=== PATIENT | female | born 1960 | race Caucasian/White ===

== ENCOUNTER 2018-11-28 11:37 | Inpatient (IN) ==
[2018-11-28] MEDS ORDERED: PANTOPRAZOLE 40 MG VIAL IV ONE (12:47)
--- NOTE | 2018-11-28 12:47 | Emergency Department Note ---
Skin/Abscess/FB HPI - General Chief complaint: Skin/Abscess/Foreign Body Stated complaint: Peg tube fell out Time Seen by Provider: 11/28/18 11:44 Source: patient Mode of arrival: wheelchair Limitations: no limitations - History of Present Illness HPI Narrative: 58-year-old female comes in from [facility] nursing [facility] in [facility] for her PEG tube that fell out. Apparently they talked to a surgeon who advised them to put a Perez catheter in its place until definitive care could be achieved. She was actually seen last night for similar complaint here by Noemí PERDAZA but at that time the PEG tube was in place and working normally. I reviewed that note And discussed the situation with the nurse practitioner who saw her yesterday-she states that the tube was in good position yesterday. Anyways at this point she is leaking bloody gastric juices all over her left abdomen. She is screaming in pain at times. She has limited verbal capacity status post CVA, with multiple complications-she has a right sided arm contracture, hemiplegia dysarthria dysphagia etc. She will answer yes or no questions however She is DNR with limited interventions-see post form - Related Data Home Medications Medication Instructions Recorded Confirmed ALPRAZolam [Xanax] 0.5 mg PO BIDP PRN 09/13/18 09/13/18 Acetaminophen [Tylenol] 500 mg PO QHS 09/13/18 09/13/18 Albuterol Sulfate [Ventolin] 2.5 mg NEB Q2HP PRN 09/13/18 09/13/18 Bisacodyl [Correctol] 5 mg PO DAILY 09/13/18 09/13/18 Bisacodyl [Laxative Suppository] 10 mg RC PRN PRN 09/13/18 09/13/18 Cholecalciferol (Vitamin D3) 2,000 unit PO DAILY 09/13/18 09/13/18 [Vitamin D3] Citalopram Hydrobromide 30 mg PO DAILY 09/13/18 09/13/18 [Citalopram HBr] Cranberry 500 mg PO BID 09/13/18 09/13/18 Docusate Sodium [Colace] 100 mg PO BID 09/13/18 09/13/18 Folic Acid 1 mg PO DAILY 09/13/18 09/13/18 Gabapentin [Neurontin] 18 ml PO TID 09/13/18 09/13/18 HYDROcodone/APAP 5/325MG [[place] 1 tab PO TIDP PRN 09/13/18 09/13/18 5-325Mg] Ipratropium/Albuterol [Duoneb] 3 ml NEB Q6HP PRN 09/13/18 09/13/18 Loratadine [Loradamed] 10 mg PO DAILY 09/13/18 09/13/18 Magnesium Hydroxide [Milk of 400 mg PO PRN PRN 09/13/18 09/13/18 Magnesia] Melatonin 10 mg PO QHS 09/13/18 09/13/18 Mirtazapine [Remeron] 1.5 tab PO HS 09/13/18 09/13/18 Mometasone Efrem [place] [Nasonex] 2 spray EFREM DAILY 09/13/18 09/13/18 Multivitamin [One Daily] 1 each PO DAILY 09/13/18 09/13/18 PHENobarbital [Phenobarbital] 64.8 mg PO BID 09/13/18 09/13/18 Polyethylene Glycol 3350 [Miralax] 17 gm PO QHS 09/13/18 09/13/18 Sodium Fluoride [Clinpro 5000] 113 gm DT BID 09/13/18 09/13/18 carBAMazepine [Tegretol] 200 mg PO QNOON 09/13/18 09/13/18 carBAMazepine [Tegretol] 300 mg PO QPM 09/13/18 09/13/18 carBAMazepine [Tegretol] 400 mg PO QAM 09/13/18 09/13/18 guaiFENesin [Guaifenesin] 400 mg PO Q12HP PRN 09/13/18 09/13/18 Previous Rx's Medication Instructions Recorded ALPRAZolam [Xanax] 0.5 mg PO BIDP PRN #6 tab 09/17/18 HYDROcodone/APAP 5/325MG [[place] 1 tab PO TIDP PRN #10 tab 09/17/18 5-325Mg] Doxycycline Hyclate [Morgidox] 100 mg PO BID 10 Days #20 cap 11/27/18 Allergies Allergy/AdvReac Type Severity Reaction Status Date / Time Amoxicillin [From Augmentin] Allergy Verified 11/28/18 11:37 bee venom protein (honey bee) Allergy Verified 11/28/18 11:37 clavulanic acid Allergy Verified 11/28/18 11:37 [From Augmentin] divalproex sodium Allergy Verified 11/28/18 11:37 [From Depakote] latex Allergy Verified 11/28/18 11:37 Penicillins Allergy Verified 11/28/18 11:37 phenytoin [From Dilantin] Allergy Verified 11/28/18 11:37 valproic acid Allergy Verified 11/28/18 11:37 seafood Allergy Uncoded 09/13/18 22:18 Review of Systems Limitations: ROS unobtainable due to patients medical condition Past Medical History - Past Medical History Source: old records reviewed Medical history: Reports: CVA (Complications of muscle weakness and contracture on the right, aphasia, ataxia, dysphagia), hypertension, osteoporosis, seizures Surgical history ED: Reports: other (Craniotomy with temporal lobe lobectomy, retroperitoneal shunt, colonoscopy, left hip arthroscopy, PEG tube) - Social History smoking status: Former smoker Alcohol use: Reports: None Drug use: Reports: none Physical Exam Some distress secondary to pain. Normocephalic atraumatic. Conjunctive are clear sclerae white and nonicteric. Moist mucous membranes. Poor dentition. She is crying out in pain but she has a gurgling in her throat like she is hav ing trouble controlling her secretions. We did suction with the [place] and just had mucousy spittle. No debris or foodstuffs. Heart is regular rate and rhythm no murmur appreciated. However she is somewhat difficult to auscultate with her moaning in pain and the gurgling in the top of her throat. Lungs are basically clear especially laterally. Examination of the stomach wound and peristomal area skin where the PEG tube had been is very irritated from the leaking sanguinous gastric juices. It is not clear where the Perez tube had gone-but clearly not in place now. So there is a surrounding halo of erythematous skin. She has a contracture of the right hand and arm. Not moving much spontaneously but is rolled up onto the left side Course Vital Signs Temperature 98.9 F 11/28/18 11:37 Pulse Rate 83 11/28/18 11:37 Respiratory Rate 20 11/28/18 11:37 Blood Pressure 145/109 11/28/18 11:37 Pulse Oximetry (%) 96 11/28/18 11:37 Temperature 98.9 F 11/28/18 11:37 Pulse Rate 74 11/28/18 12:47 Respiratory Rate 20 11/28/18 11:37 Blood Pressure 132/115 11/28/18 12:47 Pulse Oximetry (%) 93 11/28/18 12:47 Skin/Abscess/Foreign Body - Radiology Data Radiology results reviewed: Yes I reviewed the patient's radiology results. Chest x-ray shows increased vascular markings but no acute disease process Disposition Pt seen by [facility] T[facility]ER/PA only: No Clinical Impression: Dysphagia as late effect of cerebrovascular accident (CVA), PEG tube malfunction Dermatitis due to food skin contact Qualifiers: Contact dermatitis type: irritant Qualified Code(s): L24.6 - Irritant contact dermatitis due to food in contact with skin Summary: I reviewed the chart examined the patient and then ordered laboratory and x-ray. I discussed case with Dr. Ankit Lala, general surgeon who agreed to come down and examine patient as well. Rx is written for small amount of Protonix IV with the thought that this might reduce acid secretion and therefore skin irritation while waiting Dr. Lala agreed that the patient needed replaced PEG tube as well as further workup regarding her respiratory status chest x-ray was unrevealing and so CT scan was ordered. This had to be changed without contrast. There are vascular access issues but we were able to get laboratory. Dr. Lala agreed to accept the patient and so she is admitted to observation status Laboratory and CT scan are pending. IV access is still an issue Disposition: Xfer As Inpt ([facility]) Condition: Fair Referrals: Olga Artis MD [Primary Care Provider] - Ankit Lala MD [Physician] -
[2018-11-28] MEDS ORDERED: ONDANSETRON 4 MG/2 ML VIAL IV PRN ×2 (12:50→13:00)
[2018-11-28] MEDS ORDERED: PIPERACILLIN SODIUM/TAZOBACTAM 3.375 GM in DEXTROSE 5% IN WATER 50 ML IV SCH ×2 (13:00)
--- NOTE | 2018-11-28 13:02 | XRay Report ---
INDICATION: Dyspnea. Gastrostomy tube has been removed TECHNIQUE: AP chest x-ray,audible semiupright COMPARISON: Previous examination dated 11/27/2018 FINDINGS:Lungs are negative. No parenchymal infiltrate or mass. No focal abnormality. Heart size and vascularity are normal. Natyt and mediastinum are negative. Again demonstrated is a left-sided ventriculoperitoneal shunt catheter. No significant interval change IMPRESSION: 1. Negative AP chest x-ray 2. No significant interval change since 11/27/2018 Interpreted and Authenticated by: Juan Mendoza 11/28/18
[2018-11-28 13:51] LABS: Basophils # (Auto) 0 K/mcL (0.0-0.3); Basophils % (Auto) 0.3 % (0.0-2.0); Eosinophils # (Auto) 0 K/mcL (0.0-0.7); Eosinophils % (Auto) 0 % (0.0-7.0); Granulocytes % (Auto) 45.7 % (38.0-78.0); Lymphocytes # (Auto) 2.6 K/mcL (1.5-4.8); Lymphocytes % (Auto) 41.9 % (15.5-49.0); Mean Cell Volume 94.4 fL (80.0-100.0); Mean Corpuscular HGB Conc 33.2 g/dL (31.0-36.0); Monocytes # (Auto) 0.7 K/mcL (0.1-0.9); Monocytes % (Auto) 12.1 % (1.0-12.0); Platelet Count 248 K/mcL (140-440); RBC 4.31 M/mcL (4.00-5.20); Red Cell Distribution Width 13.6 % (11.5-14.5)
[2018-11-28 14:10] LABS: ALT/SGPT 11 U/l (0-40); Albumin 3.7 gm/dL (3.2-5.2); Albumin/Globulin Ratio 0.9 (1.0-2.3); Alkaline Phosphatase 157 U/L (39-117); Blood Urea Nitrogen 11 mg/dl (6-20)
--- NOTE | 2018-11-28 14:21 | Cat Scan Report ---
CLINICAL INFORMATION: History of percutaneous gastrostomy tube. This has apparently been removed and is leaking. COMPARISON: Previous examination dated 09/13/2018 TECHNIQUE: Axial images were obtained through the abdomen and pelvis. Sagittally and coronally reformatted images. FINDINGS: There is a history of a gastrostomy tube. Catheter is not identified. Greater curvature of the stomach is closely applied to the abdominal wall. There is a skin defect in the left anterior abdominal wall. Appearance is consistent with chronic granulation tissue forming around the gastrostomy tract. There is no detectable lumen. There is no pneumoperitoneum. No significant free intraperitoneal fluid. No intra-abdominal abscess. There is no subcutaneous abscess. There is mild left lower lobe atelectasis or infiltrate. No pleural fluid. No pericardial fluid. Liver is negative for limits of noncontrast enhanced examination. Liver contour is smooth. There is no ascites. Gallbladder is present. No calcified gallstones. Spleen is not enlarged. Negative pancreas. No pancreatic mass. No peripancreatic abnormality. Negative adrenal glands. Kidneys are negative. No detectable mass. No calculi. No hydronephrosis or hydroureter. Uterus appears to be present. There is no adnexal mass. The distal sigmoid colon and rectum are dilated and filled with fecal material. Appearance is consistent with fecal impaction. There is mild pneumatosis consistent with stercoral colitis. No intra-abdominal abscess. No perirectal abscess. There is no pneumoperitoneum. No biliary or portal venous gas. Superior mesenteric vein is negative without gas. No lumbar compression fracture. There is left convex scoliosis. There is a prosthetic right hip. No pelvic fracture. No sacral fracture. IMPRESSION: 1. Soft tissue density extending from the stomach to the skin surface on the left side of the abdomen. There is no intraperitoneal gas or fluid. No intra-abdominal abscess 2. Distal fecal impaction and findings consistent with stercoral colitis The exam was performed using radiation dose optimization techniques including, but not limited to, automated exposure control, adjustment of the mA and/or kV according to patient size and use of iterative reconstruction technique. Interpreted and Authenticated by: Juan Mendoza 11/28/18
[2018-11-28] MEDS: IPRATROPIUM/ALBUTEROL 3 ML AMPUL.NEB NEB SCH ×3 (15:23→23:16)
[2018-11-28] MEDS: 0.9 % SODIUM CHLORIDE 1,000 ML IV SCH (15:57)
[2018-11-28] MEDS: 0.9 % SODIUM CHLORIDE 10 ML SYRINGE IV SCH ×2 (15:57→22:55)
[2018-11-28] MEDS: HYDROmorphone 2 MG/ML VIAL IV PRN ×2 (16:00→22:53)
[2018-11-28] MEDS: PANTOPRAZOLE 40 MG VIAL IV SCH (17:03)
--- NOTE | 2018-11-28 17:35 | Internal Medicine Consult Note ---
Medical - CN: [facility] - Data of Consult Consult date: 11/28/18 Primary Care Provider: Olga Artis Family Provider: Grayson Cullen - Consult Narrative Reason for consult: management of medical issues-requesting physician Dr. Lala surgery History of present illness: Ms. Pino is a 58 year old F with a history of CVA, craniotomy, OVERSEAMER shunt ,dysphagia on PEG tube feeding ,seizure disorder, depression with anxiety who currently resides at the [facility]. Patient carries a history of significant dysphagia secondary to CVA and has a gastrostomy tube for nutrition and medications. She comes to [place] [facility] after she was directed for further evaluation in the setting of recent gastrostomy dislodgment which was replaced by a Perez's catheter. Subsequently it was noted that she had extensive discharge around the ostomy site surrounding the catheter. She subsequent developed extensive excoriation of the skin along the left flank and abdomen due to leaking gastric fluids. Concern was raised about the possibility of malpositioning of Perez's catheter in the gastrostomy orifice. Initial workup included CT abdomen which did not show any acute peritonitis or intra-abdominal fluid collection. Surgery was consulted and admitted the patient for gastrostomy tube placement in a.m. Patient is currently n.p.o. Hospitalist service was consulted in light of complex medical history including CVA/seizure disorder on multiple medications. At the time of evaluation patient is nondistressed. She has an ostomy bag over gastrostomy site. Wound care team currently addressing cheryl-gastrostomy site skin inflammation. Patient denies fever chills but endorses to pain around the ostomy site. Patient has significant expressive aphasia. She does not appear to be in distress and breathing comfortably. 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, apparently she does not drink. She is unable to say whether or not she smokes, records are mixed as to whether or not she is an active smoker. Medical - CN: Meds Home Medications Medication Instructions Recorded Confirmed Type ALPRAZolam [Xanax] 0.5 mg PO BIDP PRN 09/13/18 11/28/18 History Acetaminophen [Tylenol] 500 mg PO QHS 09/13/18 11/28/18 History Albuterol Sulfate [Ventolin] 2.5 mg NEB Q2HP PRN 09/13/18 11/28/18 History Bisacodyl [Correctol] 5 mg PO DAILYP PRN 09/13/18 11/28/18 History Bisacodyl [Laxative Suppository] 10 mg RC PRN PRN 09/13/18 11/28/18 History Cholecalciferol (Vitamin D3) 2,000 unit PO DAILY 09/13/18 11/28/18 History [Vitamin D3] Citalopram Hydrobromide 30 mg PO DAILY 09/13/18 11/28/18 History [Citalopram HBr] Cranberry 425 mg PO BID 09/13/18 11/28/18 History Docusate Sodium [Colace] 100 mg PO BID 09/13/18 11/28/18 History Folic Acid 1 mg PO DAILY 09/13/18 11/28/18 History HYDROcodone/APAP 5/325MG [[place] 1 tab PO Q8H PRN 09/13/18 11/28/18 History 5-325Mg] Ipratropium/Albuterol [Duoneb] 3 ml NEB Q6HP PRN 09/13/18 11/28/18 History Loratadine [Loradamed] 10 mg PO DAILY 09/13/18 11/28/18 History Magnesium Hydroxide [Milk of 400 mg PO PRN PRN 09/13/18 11/28/18 History Magnesia] Melatonin 10 mg PO QHS 09/13/18 11/28/18 History Mirtazapine [Remeron] 1.5 tab PO HS 09/13/18 11/28/18 History Mometasone Efrem [place] [Nasonex] 2 spray EFREM DAILY 09/13/18 11/28/18 History Multivitamin [One Daily] 1 each PO DAILY 09/13/18 11/28/18 History PHENobarbital [Phenobarbital] 64.8 mg PO BID 09/13/18 11/28/18 History Polyethylene Glycol 3350 [Miralax] 17 gm PO QHS 09/13/18 11/28/18 History carBAMazepine [Tegretol] 200 mg PO DAILY 09/13/18 11/28/18 History carBAMazepine [Tegretol] 300 mg PO QPM 09/13/18 11/28/18 History carBAMazepine [Tegretol] 400 mg PO QAM 09/13/18 11/28/18 History guaiFENesin [Guaifenesin] 400 mg PO Q12HP PRN 09/13/18 11/28/18 History Doxycycline Hyclate [Morgidox] 100 mg PO BID 10 Days #20 cap 11/27/18 11/28/18 Rx Gabapentin [Neurontin] 900 mg PO TID 11/28/18 11/28/18 History Loratadine 10 mg FLUSH DAILY 11/28/18 11/28/18 History Allergies Allergy/AdvReac Type Severity Reaction Status Date / Time bee venom protein (honey bee) Allergy Verified 11/28/18 11:37 divalproex sodium Allergy Verified 11/28/18 11:37 [From Depakote] latex Allergy Verified 11/28/18 11:37 Penicillins Allergy Verified 11/28/18 11:37 phenytoin [From Dilantin] Allergy Verified 11/28/18 11:37 seafood Allergy Uncoded 09/13/18 22:18 Medical - CN: Exam - Constitutional Vitals: Temp Pulse Resp BP Pulse Ox 98.7 F 95 H 16 136/82 93 11/28/18 16:00 11/28/18 16:00 11/28/18 16:00 11/28/18 16:00 11/28/18 16:00 General appearance: no acute distress Exam: Patient alert however slow to respond with expressive aphasia, nondistressed Postcraniotomy/OVERSEAMER shunt Oral cavity dry No ear nose discharge Neck no lymphadenopathy S1-S2 regular rhythm Diminished breath sounds bases Abdomen soft, minimally tender around the G-tube insertion site and extensive excoriation/erythema on the left lateral flank due to gastric acid flow over from gastrostomy orifice. Ostomy bag in place right sided weakness at baseline No skin rash/cyanosis, minimal edema Psych cooperative but slow to respond Medical - CN: Result - Labs CBC & Chem 7: 11/28/18 13:28 11/28/18 13:28 Labs: Short CBC 11/28/18 Range/Units 13:28 WBC 6.1 (4.5-11.0) K/mcL Hgb 13.5 (12.0-15.0) g/dL Hct 40.7 (36.0-48.0) % Plt Count 248 (140-440) K/mcL BMP 11/28/18 13:28 Sodium 140 Potassium 4.1 Chloride 101 Carbon Dioxide 30 BUN 11 Creatinine 0.4 L Glucose 99 Calcium 9.5 Liver Function 11/28/18 Range/Units 13:28 Total Bilirubin 0.3 (0.0-1.0) mg/dL AST 13 (0-37) U/l ALT 11 (0-40) U/l Alkaline Phosphatase 157 H (39-117) U/L Albumin 3.7 (3.2-5.2) gm/dL Medical - CN: A/P (1) PEG tube malfunction Status: Acute Assessment and plan: * Gastrostomy site wound/G-tube displacement with subsequent leakage. Surgery managing. Will undergo placement of G-tube in morning. CT abdomen no e vidence of peritonitis/abscess. Currently n.p.o. until G-tube placement in a.m. initiated on antibiotic coverage/IV PPI for gastric acid suppression Hospitalist consult for management of medical issues * History of CVA with right hemiparesis status post OVERSEAMER shunt/temporal lobectomy and craniotomy-patient at baseline with expressive aphasia. * History of anxiety depression-continue home medications once G-tube placed. At this time n.p.o. we will restart citalopram/alprazolam/mirtazapine * History of seizure disorder-on carbamazepine/gabapentin/phenobarbital at outpatient however in light of being n.p.o. will use as needed benzodiazepine. * History of asthma continue bronchodilators * DNR * Prophylaxis SCDs Plan * G-tube placement a.m. by surgery * IV PPI to allow gastric acid suppression and minimize leakage * Wound care consult * IV antiseizure medications as indicated. * Restart home meds Post G-tube placement
--- NOTE | 2018-11-28 17:54 | General Surg History&Physical ---
History of Present Illness Patient information: Note initiated : 11/28/18 at 5:51 pm Service Date, if different from initiated Date: [] Patient: Jose Alejandro Pino a 58 y/o F admitted on 11/28/18 for Peg tube fell out. Chief Complaint: [] HPI: Ms. Pino is a 58 year old F admitted with malposition gastrostomy tube. The patient has had a gastrostomy tube since 2015 according to her records. I saw her in the emergency room O1 September and change to a gastrostomy tube. In the interim the site of the gastrostomy tube has become severely excoriated with secondary cellulitis and the tube has been malposition. CT done earlier that's not confirm any leakage into the peritoneal cavity. The patient is admitted for treatment of her abdominal wall cellulitis as well as placement of a new gastrostomy tube endoscopically to allow the present site to heal. The patient does not respond to questioning so I have contacted her sister to get consent for placement of the TUBE. 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 ENTRY shunt placement Left hip hemiarthroplasty Right hip hemiarthroplasty Gastrostomy tube placement Past family history: Unobtainable Past social history: Patient resides in a nursing care facility No other history is available Medications and Allergies Home Medications Medication Instructions Recorded Confirmed Type ALPRAZolam [Xanax] 0.5 mg PO BIDP PRN 09/13/18 11/28/18 History Acetaminophen [Tylenol] 500 mg PO QHS 09/13/18 11/28/18 History Albuterol Sulfate [Ventolin] 2.5 mg NEB Q2HP PRN 09/13/18 11/28/18 History Bisacodyl [Correctol] 5 mg PO DAILYP PRN 09/13/18 11/28/18 History Bisacodyl [Laxative Suppository] 10 mg RC PRN PRN 09/13/18 11/28/18 History Cholecalciferol (Vitamin D3) 2,000 unit PO DAILY 09/13/18 11/28/18 History [Vitamin D3] Citalopram Hydrobromide 30 mg PO DAILY 09/13/18 11/28/18 History [Citalopram HBr] Cranberry 425 mg PO BID 09/13/18 11/28/18 History Docusate Sodium [Colace] 100 mg PO BID 09/13/18 11/28/18 History Folic Acid 1 mg PO DAILY 09/13/18 11/28/18 History HYDROcodone/APAP 5/325MG [[place] 1 tab PO Q8H PRN 09/13/18 11/28/18 History 5-325Mg] Ipratropium/Albuterol [Duoneb] 3 ml NEB Q6HP PRN 09/13/18 11/28/18 History Loratadine [Loradamed] 10 mg PO DAILY 09/13/18 11/28/18 History Magnesium Hydroxide [Milk of 400 mg PO PRN PRN 09/13/18 11/28/18 History Magnesia] Melatonin 10 mg PO QHS 09/13/18 11/28/18 History Mirtazapine [Remeron] 1.5 tab PO HS 09/13/18 11/28/18 History Mometasone Efrem [place] [Nasonex] 2 spray EFREM DAILY 09/13/18 11/28/18 History Multivitamin [One Daily] 1 each PO DAILY 09/13/18 11/28/18 History PHENobarbital [Phenobarbital] 64.8 mg PO BID 09/13/18 11/28/18 History Polyethylene Glycol 3350 [Miralax] 17 gm PO QHS 09/13/18 11/28/18 History carBAMazepine [Tegretol] 200 mg PO DAILY 09/13/18 11/28/18 History carBAMazepine [Tegretol] 300 mg PO QPM 09/13/18 11/28/18 History carBAMazepine [Tegretol] 400 mg PO QAM 09/13/18 11/28/18 History guaiFENesin [Guaifenesin] 400 mg PO Q12HP PRN 09/13/18 11/28/18 History Doxycycline Hyclate [Morgidox] 100 mg PO BID 10 Days #20 cap 11/27/18 11/28/18 Rx Gabapentin [Neurontin] 900 mg PO TID 11/28/18 11/28/18 History Loratadine 10 mg FLUSH DAILY 11/28/18 11/28/18 History Allergies Allergy/AdvReac Type Severity Reaction Status Date / Time bee venom protein (honey bee) Allergy Verified 11/28/18 11:37 divalproex sodium Allergy Verified 11/28/18 11:37 [From Depakote] latex Allergy Verified 11/28/18 11:37 Penicillins Allergy Verified 11/28/18 11:37 phenytoin [From Dilantin] Allergy Verified 11/28/18 11:37 seafood Allergy Uncoded 09/13/18 22:18 Exam Temp Pulse Resp BP Pulse Ox 98.7 F 95 H 16 136/82 93 11/28/18 16:00 11/28/18 16:00 11/28/18 16:00 11/28/18 16:00 11/28/18 16:00 - General physical appearance moderate pain, cachectic, chronically ill - ENT normal pinna, normal nares, normal mucosa, no congestion - Head Head exam IM: Present: normal inspection - Neck no masses, no bruits, trachea midline, no lymphadenopathy, no venous distension - Cardiovascular Cardiovascular exam IM: Present: RRR, +S1, +S2, tachycardia. Absent: JVD - Respiratory normal expansion, normal respiratory effort, other (coarse tubular breath sounds both lung nevarez) - Abdomen Abdomen: Present: tender ( patient Andrés is for contracted; old inflamed PEG tube site left upper quadrant with extensive cellulitis of anterior abdominal wall with excoriations), bowel sounds - Integumentary Present: other (severe cellulitis around PEG site in left upper quadrant and is presently covered with a stoma device) - Neurologic Present: other ( severe neurologic deficit with flexion contractures of hips knees, ankles, feet and entire right upper extremity) - Psychiatric Present: other (difficult to determine if she is fully oriented; she does not respond to any yes or no questions and symmetric,) Assessment and Plan (1) PEG tube malfunction PEG tube will be placed tomorrow under anesthesia Boaz site will be allowed to heal Antibiotic coverage for cellulitis Status: Acute (2) Cellulitis of left abdominal wall Wound care nurse to evaluate and treat patient Status: Acute (3) History of stroke with residual deficit Status: Acute (4) Contracture of muscle of lower extremity, bilateral Status: Acute (5) Seizure disorder as sequela of cerebrovascular accident Status: Acute
[2018-11-28] MEDS: LEVOFLOXACIN 750 MG/150 ML BAG IV SCH (18:05)
[2018-11-29] MEDS: 0.9 % SODIUM CHLORIDE 1,000 ML IV SCH ×4 (02:47→23:29)
[2018-11-29] MEDS: IPRATROPIUM/ALBUTEROL 3 ML AMPUL.NEB NEB SCH ×6 (03:23→23:32)
[2018-11-29] MEDS: 0.9 % SODIUM CHLORIDE 10 ML SYRINGE IV SCH ×3 (04:06→23:21)
[2018-11-29] MEDS: HYDROmorphone 2 MG/ML VIAL IV PRN ×5 (05:06→23:18)
[2018-11-29 06:51] LABS: Mean Cell Volume 95.7 fL (80.0-100.0); Mean Corpuscular HGB Conc 33.1 g/dL (31.0-36.0); Platelet Count 214 K/mcL (140-440); RBC 3.73 M/mcL (4.00-5.20); Red Cell Distribution Width 13.4 % (11.5-14.5)
[2018-11-29 07:15] LABS: ALT/SGPT 8 U/l (0-40); Albumin 3.3 gm/dL (3.2-5.2); Albumin/Globulin Ratio 0.9 (1.0-2.3); Alkaline Phosphatase 130 U/L (39-117); Bilirubin,Direct < 0.2 mg/dL (0.0-0.3); Blood Urea Nitrogen 17 mg/dl (6-20); Gamma Glutamyl Transpeptidase 46 U/L (5-36); Uric Acid 3.9 mg/dL (2.5-8.0)
[2018-11-29 08:20] LABS: Eosinophils % (Manual) 1 % (0-7); Lymphocytes % 41 % (15-49); Monocytes % (Manual) 8 % (1-12); Platelet Estimate NORMAL (NORMAL); RBC Morphology NORMAL (NORMAL); Segmented Neutrophils % 50 % (38-78)
[2018-11-29] MEDS: PANTOPRAZOLE 40 MG VIAL IV SCH ×2 (09:32→16:09)
[2018-11-29] MEDS: LEVOFLOXACIN 750 MG/150 ML BAG IV SCH (09:33)
[2018-11-29] MEDS ORDERED: levETIRAcetam 500 MG in 0.9 % SODIUM CHLORIDE 100 ML IV ONE (10:30)
--- NOTE | 2018-11-29 12:03 | Internal Med Progress Note ---
Medical - PN: Subj Patient information: Note initiated : 11/29/18 at 12:00 pm Service Date, if different from initiated Date: [] Patient: Jose Alejandro Pino a 58 y/o F admitted on 11/28/18 for Peg tube fell out. Chief Complaint: [] Interval history: Ms. Pino is a 58 year old F with a history of CVA, craniotomy, CLIENT RESOLUTION SPECIALIST shunt ,dysphagia on PEG tube feeding ,seizure disorder, depression with anxiety who currently resides at [facility]. Patient carries a history of significant dysphagia secondary to CVA and has a gastrostomy tube for nutrition and medications. She comes to [place] [facility] after she was directed for further evaluation in the setting of recent gastrostomy dislodgment which was replaced by a Perez's catheter. Subsequently it was noted that she had extensive discharge around the ostomy site surrounding the catheter. She subsequent developed extensive excoriation of the skin along the left flank and abdomen due to leaking gastric fluids. Concern was raised about the possibility of malpositioning of Perez's catheter in the gastrostomy orifice. Initial workup included CT abdomen which did not show any acute peritonitis or intra-abdominal fluid collection. Surgery was consulted and admitted the patient for gastrostomy tube placement in a.m. Patient is currently n.p.o. Hospitalist service was consulted in light of complex medical history including CVA/seizure disorder on multiple medications. At the time of evaluation patient is nondistressed. She has an ostomy bag over gastrostomy site. Wound care team currently addressing cheryl-gastrostomy site s kin inflammation. Patient denies fever chills but endorses to pain around the ostomy site. Patient has significant expressive aphasia. She does not appear to be in distress and breathing comfortably. 11/29-patient doing well. No overnight events. Due for PEG tube placement today. IV Keppra for seizure prophylaxis load as patient unable to take per tube antiseizure medications. Continue IV Keppra until able to use PEG tube. No overnight fever or chills. No concerns per staff. Ongoing wound care around the gastrostomy site - Constitutional Vitals: Vital Signs Temp Pulse Resp BP Pulse Ox 97.9 F 101 H 16 130/67 95 11/29/18 11:14 11/29/18 06:42 11/29/18 11:14 11/29/18 11:14 11/29/18 11:14 Period Temp Pulse Resp BP Sys/Honeycutt Pulse Ox Last 24 Hr 97.9 F-99.3 F 74-110 12-20 103-152/63-115 80-97 Intake and Output 11/28/18 11/29/18 11/29/18 21:59 05:59 13:59 Intake Total 1000 300 Output Total 1 1 Balance -1 999 300 Weight 135 lb 152 lb 152 lb Patient Weight 11/30/18 05:59 Weight 152 lb Intake & Output: Intake & Output 11/28/18 11/29/18 11/29/18 21:59 05:59 13:59 Intake Total 1000 300 Output Total 1 1 Balance -1 999 300 Weight 135 lb 152 lb 152 lb Intake: IV 1000 300 Sodium Chloride 0.9% 1,000 ml @ 1000 75 mls/hr IV .[id number] [facility] Rx#: [id number] Oral 0 Output: # of times incontinent of urine 1 1 Other: Stool Size Small Stool Color Brown Stool Consistency Soft # Bowel Movements 1 # of times incontinent of 1 Bowels General appearance: no acute distress Exam: Mild cheryl-gastrostomy site inflammation with ostomy bag in place. No anxiety Persistent right-sided weakness/upper extremity spasm from prior CVA Alert and responding to commands Medical - PN: Obj Da - Labs CBC & Chem 7: 11/29/18 05:41 11/29/18 05:41 Labs: Abnormal Lab Results 11/29/18 11/29/18 11/28/18 05:41 05:41 13:28 RBC 3.73 L Hgb 11.8 L Hct 35.7 L [place] % (Auto) Creatinine 0.4 L Glucose 113 H GGT 46 H Alkaline Phosphatase 130 H C-Reactive Protein 5.0 H Globulin Albumin/Globulin Ratio 0.9 L 11/28/18 11/28/18 13:28 13:28 RBC Hgb Hct [place] % (Auto) 12.1 H Creatinine 0.4 L Glucose GGT Alkaline Phosphatase 157 H C-Reactive Protein Globulin 4.2 H Albumin/Globulin Ratio 0.9 L Meds: Medications Albuterol/Ipratropium (Duoneb) 3 ml NEB Q4HRT [facility] Last Admin: 11/29/18 08:01 Dose: Not Given Documented by: Hydromorphone HCl (Dilaudid) 1 mg IV Q2HP PRN PRN Reason: PAIN LEVEL > 6 Last Admin: 11/29/18 07:04 Dose: 1 mg Documented by: Sodium Chloride (Sodium Chloride 0.9%) 1,000 mls @ 75 mls/hr IV .[id number] [facility] Last Admin: 11/29/18 06:47 Dose: 75 mls/hr Documented by: Levofloxacin (Levaquin) 750 mg in 150 mls @ 100 mls/hr IV Q24H [facility] Last Infusion: 11/29/18 11:26 Dose: Infused Documented by: Ondansetron HCl (Zofran) 4 mg IV Q6HP PRN PRN Reason: Nausea And Vomiting Pantoprazole Sodium (Protonix) 40 mg IV BIDAC [facility] Last Admin: 11/29/18 09:32 Dose: 40 mg Documented by: Sodium Chloride (Saline Flush) 10 ml IV Q8 [facility] Last Admin: 11/29/18 04:06 Dose: Not Given Documented by: Medical - PN: A/P - Time Spent With Patient Total time spent is greater than 50% in coordination of care (as documented) at patient's floor/unit and/or counseling patient: 15 - 24 minutes (1) PEG tube malfunction Status: Acute Assessment and plan: * Gastrostomy site wound/G-tube displacement with subsequent leakage. PEG tube placement today by surgery. Currently n.p.o./IV PPI for gastric acid suppression. No CT evidence of peritonitis/fluid collection. Hospitalist consult for management of medical issues * History of CVA with right hemiparesis status post CLIENT RESOLUTION SPECIALIST shunt/temporal lobectomy and craniotomy-patient at baseline with expressive aphasia. * History of anxiety depression-continue home medications once G-tube placed. At this time n.p.o. we will restart citalopram/alprazolam/mirtazapine * History of seizure disorder-now on IV Keppra until medications can be administered via G-tube. on carbamazepine/gabapentin/phenobarbital at outpatient. * History of asthma continue bronchodilators * DNR * Prophylaxis SCDs Plan * G-tube placement a.m. by surgery today * IV PPI to allow gastric acid suppression and minimize leakage * Wound care * IV Keppra medications as indicated. * Restart home meds Post G-tube placement Current Visit: Yes Medical - PN: Qual - VTE Deep Vein Thrombosis/Pulmonary Embolism Present on Admission: No
[2018-11-29] MEDS ORDERED: KETAMINE 100 MG/ML ML IV ONE (13:15)
[2018-11-29] MEDS ORDERED: MIDAZOLAM 2 MG/2 ML VIAL IV ONE (13:15)
[2018-11-29] MEDS ORDERED: ROCURONIUM 10 MG/ML ML IV ONE (13:15)
[2018-11-29] MEDS ORDERED: fentaNYL 100 MCG/2 ML VIAL IV ONE (13:15)
[2018-11-29] MEDS ORDERED: SUGAMMADEX SODIUM 200 MG/2 ML VIAL IV ONE (13:15)
[2018-11-29] MEDS ORDERED: PROPOFOL 200 MG/20 ML VIAL IV ONE (13:15)
[2018-11-29] MEDS ORDERED: LIDOCAINE HCL/PF 100 MG/5 ML SYRINGE IV ONE (13:15)
[2018-11-29] MEDS ORDERED: ONDANSETRON 4 MG/2 ML VIAL IV ONE (13:15)
[2018-11-29] MEDS ORDERED: GLYCOPYRROLATE 0.2 MG/ML VIAL IV ONE (13:15)
[2018-11-29] MEDS ORDERED: MEPERIDINE 25 MG/ML SYRINGE IV PRN ×2 (13:53→14:15)
[2018-11-29] MEDS ORDERED: IPRATROPIUM/ALBUTEROL 3 ML AMPUL.NEB NEB PRN ×2 (13:53→14:15)
[2018-11-29] MEDS ORDERED: fentaNYL 100 MCG/2 ML VIAL IV PRN ×2 (13:53→14:15)
[2018-11-29] MEDS ORDERED: ONDANSETRON 4 MG/2 ML VIAL IV PRN ×3 (13:53→14:15)
--- NOTE | 2018-11-29 13:58 | Brief Operative Note ---
Date of procedure: 11/29/18 Pre-op diagnosis: peg tube malfunction;gastrocutaneous fistula Post-op diagnosis: other (PEG TUBE MALFUNCTION ;GASTROCUTANEOUS FISTULA) Procedure: EGD WITH PERCUTANEOUS ENDOSCOPIC GASTROSTOMY TUBE PLACEMENT PARTIAL CLOSURE OF GASTROCUTANEOUS FISTULA Grafts/Implants: Yes (20F GASTROSTOMY TUBE) Anesthesia: GETA Findings: VERY LARGE GASTROSTOMY OPENING EXTENDING THROUGH ENTIRE ABDOMINAL WALL FULL THICKNESS Complications: none Surgeon: Camila Lala Specimens Removed/Pathology: none sent Condition: stable Disposition: PACU
[2018-11-29] MEDS ORDERED: LACTATED RINGERS 1,000 ML IV SCH ×2 (14:00→14:15)
--- NOTE | 2018-11-29 15:59 | Internal Med Progress Note ---
Medical - PN: Subj Patient information: Note initiated : 11/29/18 at 3:59 pm Service Date, if different from initiated Date: [] Patient: Jose Alejandro Pino a 58 y/o F admitted on 11/29/18 for Peg tube fell out. Chief Complaint: [] Interval history: Ms. Pino is a 58 year old F with a history of CVA, craniotomy, INDUSTRIAL RELATIONS REPRESENTATIVE shunt ,dysphagia on PEG tube feeding ,seizure disorder, depression with anxiety who [facility]. Patient carries a history of significant dysphagia secondary to CVA and has a gastrostomy tube for nutrition and medications. She comes to [place] [facility] after she was directed for further evaluation in the setting of recent gastrostomy dislodgment which was replaced by a Perez's catheter. Subsequently it was noted that she had extensive discharge around the ostomy site surrounding the catheter. She subsequent developed extensive excoriation of the skin along the left flank and abdomen due to leaking gastric fluids. Concern was raised about the possibility of malpositioning of Perez's catheter in the gastrostomy orifice. Initial workup included CT abdomen which did not show any acute peritonitis or intra-abdominal fluid collection. Surgery was consulted and admitted the patient for gastrostomy tube placement in a.m. Patient is currently n.p.o. Hospitalist service was consulted in light of complex medical history including CVA/seizure disorder on multiple medications. At the time of evaluation patient is nondistressed. She has an ostomy bag over gastrostomy site. Wound care team currently addressing cheryl-gastrostomy site sk in inflammation. Patient denies fever chills but endorses to pain around the ostomy site. Patient has significant expressive aphasia. She does not appear to be in distress and breathing comfortably. 11/29-patient doing well. No overnight events. Due for PEG tube placement today. IV Keppra for seizure prophylaxis load as patient unable to take per tube antiseizure medications. Continue IV Keppra until able to use PEG tube. No overnight fever or chills. No concerns per staff. Ongoing wound care around the gastrostomy site 11/30 - Constitutional Vitals: Vital Signs Temp Pulse Resp BP Pulse Ox 97.9 F 95 H 16 130/67 93 11/29/18 11:14 11/29/18 14:40 11/29/18 14:40 11/29/18 11:14 11/29/18 12:50 Period Temp Pulse Resp BP Sys/Honeycutt Pulse Ox Last 24 Hr 97.9 F-99.3 F 84-110 12-17 103-141/63-85 80-97 Intake and Output 11/29/18 11/29/18 11/29/18 05:59 13:59 21:59 Intake Total 1000 300 105 Output Total 1 Balance 999 300 105 Weight 68.946 kg 68.946 kg Patient Weight 11/30/18 05:59 Weight 68.946 kg Intake & Output: Intake & Output 11/29/18 11/29/18 11/29/18 05:59 13:59 21:59 Intake Total 1000 300 105 Output Total 1 Balance 999 300 105 Weight 68.946 kg 68.946 kg Intake: IV 1000 300 105 Sodium Chloride 0.9% 1,000 ml @ 1000 75 mls/hr IV .[id number] [facility] Rx#: [id number] Oral 0 Output: # of times incontinent of urine 1 Other: Stool Size Small Stool Color Brown Stool Consistency Soft # Bowel Movements 1 Exam: General: Alert, Awake, No acute Distress Eyes/N/T: EOMI, Head/Neck: neck supple, CV: RRR, No murmurs, Pulm: Clear b/l, no wheezing/rhonchi/rales Abd: soft, Ext: no clubbing/cyanosis/edema Neuro: Alert, no focal deficits, moves all extremities, Skin: warm/dry Medical - PN: Obj Da - Labs CBC & Chem 7: 11/29/18 05:41 11/29/18 05:41 Labs: Abnormal Lab Results 11/29/18 11/29/18 11/28/18 05:41 05:41 13:28 RBC 3.73 L Hgb 11.8 L Hct 35.7 L [place] % (Auto) Creatinine 0.4 L Glucose 113 H GGT 46 H Alkaline Phosphatase 130 H C-Reactive Protein 5.0 H Globulin Albumin/Globulin Ratio 0.9 L 11/28/18 11/28/18 13:28 13:28 RBC Hgb Hct [place] % (Auto) 12.1 H Creatinine 0.4 L Glucose GGT Alkaline Phosphatase 157 H C-Reactive Protein Globulin 4.2 H Albumin/Globulin Ratio 0.9 L Meds: Medications Albuterol/Ipratropium (Duoneb) 3 ml NEB Q4HRT [facility] Last Admin: 11/29/18 14:36 Dose: 3 ml Documented by: Hydromorphone HCl (Dilaudid) 1 mg IV Q2HP PRN PRN Reason: PAIN LEVEL > 6 Levofloxacin (Levaquin) 750 mg in 150 mls @ 100 mls/hr IV Q24H [facility] Sodium Chloride (Sodium Chloride 0.9%) 1,000 mls @ 75 mls/hr IV .[id number] [facility] Last Admin: 11/29/18 14:32 Dose: 75 mls/hr Documented by: Ondansetron HCl (Zofran) 4 mg IV Q6HP PRN PRN Reason: Nausea And Vomiting Pantoprazole Sodium (Protonix) 40 mg IV BIDAC [facility] Sodium Chloride (Saline Flush) 10 ml IV Q8 [facility] Medical - PN: A/P - Time Spent With Patient Total time spent is greater than 50% in coordination of care (as documented) at patient's floor/unit and/or counseling patient: - Narrative A/P Narrative: A: -Hospitalist consult for management of medical issues *History of CVA with right hemiparesis status post INDUSTRIAL RELATIONS REPRESENTATIVE shunt/temporal lobectomy and craniotomy: patient at baseline with expressive aphasia. *History of anxiety depression: continue home medications once G-tube placed. *History of seizure disorder: now on IV Keppra until medications can be administered via G-tube. on carbamazepine/gabapentin/phenobarbital at outpatient. *History of asthma continue bronchodilators Plan: - -G-tube placement a.m. by surgery today -IV PPI to allow gastric acid suppression and minimize leakage -Wound care -IV Keppra medications as indicated. -Restart home meds Post G-tube placement -ppx: SCD DNR Medical - PN: Qual - VTE Deep Vein Thrombosis/Pulmonary Embolism Present on Admission: No
[2018-11-30] MEDS: HYDROmorphone 2 MG/ML VIAL IV PRN ×3 (05:27→21:28)
[2018-11-30] MEDS: 0.9 % SODIUM CHLORIDE 10 ML SYRINGE IV SCH ×3 (05:28→21:30)
[2018-11-30] MEDS: IPRATROPIUM/ALBUTEROL 3 ML AMPUL.NEB NEB SCH ×6 (05:29→23:01)
[2018-11-30 07:18] LABS: Mean Cell Volume 96.3 fL (80.0-100.0); Mean Corpuscular HGB Conc 33.2 g/dL (31.0-36.0); Platelet Count 189 K/mcL (140-440); RBC 3.34 M/mcL (4.00-5.20); Red Cell Distribution Width 13.4 % (11.5-14.5)
[2018-11-30 07:20] LABS: ALT/SGPT 8 U/l (0-40); Albumin/Globulin Ratio 0.9 (1.0-2.3); Alkaline Phosphatase 116 U/L (39-117); Bilirubin,Direct < 0.2 mg/dL (0.0-0.3); Blood Urea Nitrogen 9 mg/dl (6-20); Gamma Glutamyl Transpeptidase 59 U/L (5-36); Uric Acid 3.9 mg/dL (2.5-8.0)
--- NOTE | 2018-11-30 07:49 | Internal Med Progress Note ---
Medical - PN: Subj Patient information: Note initiated : 11/30/18 at 7:45 am Service Date, if different from initiated Date: [] Patient: Jose Alejandro Pino a 58 y/o F admitted on 11/29/18 for Peg tube fell out. Chief Complaint: [] Interval history: Ms. 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 Patient carries a history of significant dysphagia secondary to CVA and has a gastrostomy tube for nutrition and medications. She comes to [place] [facility] after she was directed for further evaluation in the setting of recent gastrostomy dislodgment which was replaced by a Perez's catheter. Subsequently it was noted that she had extensive discharge around the ostomy site surrounding the catheter. She subsequent developed extensive excoriation of the skin along the left flank and abdomen due to leaking gastric fluids. Concern was raised about the possibility of malpositioning of Perez's catheter in the gastrostomy orifice. Initial workup included CT abdomen which did not show any acute peritonitis or intra-abdominal fluid collection. Surgery was consulted and admitted the patient for gastrostomy tube placement in a.m. Patient is currently n.p.o. Hospitalist service was consulted in light of complex medical history including CVA/seizure disorder on multiple medications. At the time of evaluation patient is nondistressed. She has an ostomy bag over gastrostomy site. Wound care team currently addressing cheryl-gastrostomy site sk in inflammation. Patient denies fever chills but endorses to pain around the ostomy site. Patient has significant expressive aphasia. She does not appear to be in distress and breathing comfortably. 11/29-patient doing well. No overnight events. Due for PEG tube placement today. IV Keppra for seizure prophylaxis load as patient unable to take per tube antiseizure medications. Continue IV Keppra until able to use PEG tube. No overnight fever or chills. No concerns per staff. Ongoing wound care around the gastrostomy site 11/30 did have a temp spike middle of night. Had procedure (PEG placed) yesterday. No ohter overnight events. Pt nonverbal, unable to gather ROS. - Constitutional Vitals: Vital Signs Temp Pulse Resp BP Pulse Ox 97.6 F 105 H 20 124/63 95 11/30/18 06:53 11/30/18 05:15 11/30/18 06:53 11/30/18 06:53 11/30/18 07:41 Period Temp Pulse Resp BP Sys/Honeycutt Pulse Ox Last 24 Hr 97.6 F-101.1 F 86-110 14-20 105-144/53-89 90-95 Intake and Output 11/29/18 11/30/18 11/30/18 21:59 05:59 13:59 Intake Total 105 671 Output Total 1 Balance 104 671 Weight 71.123 kg Intake & Output: Intake & Output 11/29/18 11/30/18 11/30/18 21:59 05:59 13:59 Intake Total 105 671 Output Total 1 Balance 104 671 Weight 71.123 kg Intake: IV 105 671 Sodium Chloride 0.9% 1,000 ml @ 671 75 mls/hr IV .[id number] [facility] Rx#: [id number] Oral 0 Output: # of times incontinent of urine 1 Other: Stool Size Small Stool Color Brown Stool Consistency Soft Formed # Voids 1 # Bowel Movements 1 Exam: General: Alert, Awake, No acute Distress, nonverbal chronic Eyes/N/T: EOMI, Head/Neck: neck supple, CV: RRR, No murmurs, Pulm: Clear b/l, no wheezing/rhonchi/rales Abd: binder in place Ext: no clubbing/cyanosis/edema Neuro: Alert, right hemiparesis/contractures. does follow verbal commands, expressive aphasia Skin: warm/dry Medical - PN: Obj Da - Labs CBC & Chem 7: 11/30/18 05:40 11/30/18 05:40 Labs: Abnormal Lab Results 11/30/18 11/30/18 11/29/18 05:40 05:40 05:41 RBC 3.34 L Hgb 10.7 L Hct 32.2 L [place] % (Auto) Chloride 110 H Creatinine 0.4 L 0.4 L Glucose 113 H GGT 59 H 46 H Alkaline Phosphatase 130 H C-Reactive Protein Albumin 3.0 L Globulin Albumin/Globulin Ratio 0.9 L 0.9 L 11/29/18 11/28/18 11/28/18 05:41 13:28 13:28 RBC 3.73 L Hgb 11.8 L Hct 35.7 L [place] % (Auto) Chloride Creatinine 0.4 L Glucose GGT Alkaline Phosphatase 157 H C-Reactive Protein 5.0 H Albumin Globulin 4.2 H Albumin/Globulin Ratio 0.9 L 11/28/18 13:28 RBC Hgb Hct [place] % (Auto) 12.1 H Chloride Creatinine Glucose GGT Alkaline Phosphatase C-Reactive Protein Albumin Globulin Albumin/Globulin Ratio Meds: Medications Albuterol/Ipratropium (Duoneb) 3 ml NEB Q4HRT [facility] Last Admin: 11/30/18 07:40 Dose: 3 ml Documented by: Hydromorphone HCl (Dilaudid) 1 mg IV Q2HP PRN PRN Reason: PAIN LEVEL > 6 Last Admin: 11/30/18 05:27 Dose: 1 mg Documented by: Levofloxacin (Levaquin) 750 mg in 150 mls @ 100 mls/hr IV Q24H [facility] Sodium Chloride (Sodium Chloride 0.9%) 1,000 mls @ 75 mls/hr IV .[id number] [facility] Last Admin: 11/29/18 23:29 Dose: 75 mls/hr Documented by: Ondansetron HCl (Zofran) 4 mg IV Q6HP PRN PRN Reason: Nausea And Vomiting Pantoprazole Sodium (Protonix) 40 mg IV BIDAC [facility] Last Admin: 11/29/18 16:09 Dose: 40 mg Documented by: Sodium Chloride (Saline Flush) 10 ml IV Q8 [facility] Last Admin: 11/30/18 05:28 Dose: 10 ml Documented by: Medical - PN: A/P - Time Spent With Patient Total time spent is greater than 50% in coordination of care (as documented) at patient's floor/unit and/or counseling patient: - Narrative A/P Narrative: A: -Hospitalist consult for management of medical issues *History of CVA with right hemiparesis status post 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 *History of anxiety depression: continue home medications once G-tube placed. *History of seizure disorder: now on IV Keppra until medications can be a dministered via G-tube. on carbamazepine/gabapentin/phenobarbital at outpatient. *History of asthma continue bronchodilators Plan: - -G-tube placement yesterday by surgeon; restart enteral TF's and meds when ok with surgery -IV PPI to allow gastric acid suppression and minimize leakage -Wound care -IV Keppra medications as indicated. -Restart home meds Post G-tube placement -ppx: SCD DNR Medical - PN: Qual - VTE Deep Vein Thrombosis/Pulmonary Embolism Present on Admission: No
[2018-11-30] MEDS ORDERED: DEXTROSE 5%-1/2NS W/10MEQ KCL 1,000 ML IV SCH ×2 (08:00→08:02)
[2018-11-30 08:14] LABS: Band Neutrophils % 1 % (0-10); Lymphocytes % 28 % (15-49); Monocytes % (Manual) 8 % (1-12); Platelet Estimate NORMAL (NORMAL); RBC Morphology NORMAL (NORMAL); Segmented Neutrophils % 63 % (38-78)
[2018-11-30] MEDS ORDERED: LEVOFLOXACIN 750 MG/150 ML BAG IV SCH (09:00)
[2018-11-30] MEDS: 0.9 % SODIUM CHLORIDE 1,000 ML IV SCH (09:30)
[2018-11-30] MEDS: PANTOPRAZOLE 40 MG VIAL IV SCH (09:36)
[2018-11-30] MEDS ORDERED: IPRATROPIUM/ALBUTEROL 3 ML AMPUL.NEB NEB PRN ×2 (15:13→17:18)
[2018-11-30] MEDS ORDERED: ALBUTEROL SULFATE 2.5 MG/3 ML NEBULIZER NEB PRN ×2 (15:13→17:18)
[2018-11-30] MEDS ORDERED: ALPRAZolam 0.5 MG TABLET PO PRN (15:13)
[2018-11-30] MEDS ORDERED: guaiFENesin 600 MG TAB.SR.12H PO PRN (15:49)
--- NOTE | 2018-11-30 16:13 | General Surgery Progress Note ---
Subjective Patient reports: shortness of breath, fever Narrative: Note initiated : 11/30/18 at 4:12 pm Service Date, if different from initiated Date: [] Patient: Jose Alejandro Pino 58 y/o F admitted on 11/29/18 for Peg tube fell out. Chief Complaint: [patient developed elevated temperature last evening. She has had oxygen desaturation sometimes during the day, . the exact time is not documented. She is presently on 15 L with O2 sat about 91%. Her work of breathing seems to be increased and she has significant dec rease in air movement on the left. She may have atelectasis on that side and chest x-ray will be ordered. She will also be started on BiPAP and moved to telemetry. Her PEG tube site is unremarkable. She has gastric output through her gastrocutaneous fistula so the nasogastric tube will be inserted and placed on suction to decrease the output. We may have to institute short-term TPN to allow the fistula time to "close. White blood count 7.6; hemoglobin 10.7; hematocrit 32.2; BUN 9, creatinine 0.4] Objective Temp Pulse Resp BP Pulse Ox 98.7 F 99 H 24 H 123/63 95 11/30/18 15:39 11/30/18 15:06 11/30/18 15:39 11/30/18 15:39 11/30/18 15:39 - Additional Data Intake & Output - Last 24 hours: Intake & Output 11/28/18 11/29/18 11/30/18 12/01/18 05:59 05:59 05:59 05:59 Intake Total 1000 1076 150 Output Total 2 1 2 Balance 998 1075 148 Weight 152 lb 156 lb 12.8 oz - General physical appearance moderate distress, chronically ill - Eyes PERRL, normal ocular movement - ENT normal pinna, normal nares, normal mucosa, no hearing loss, no congestion - Neck no masses, no bruits, trachea midline, no lymphadenopathy, no venous distension - Respiratory other (coarse tubular breath sounds on right with markedly decreased air movement on left) - Cardiovascular Cardiovascular exam: Present: normal rate and rhythm, +S1, +S2. Absent: JVD, tachycardia - Abdomen soft, bowel sounds ( normal breath sounds; gastric output noted through fistula in left upper quadrant) - Rectum normal sphincter tone, no hemorrhoids, no tenderness, no masses, no bleeding - Integumentary other ( inflammation around the gastrocutaneous fistula is slightly improved) - Labs 11/30/18 05:40 11/30/18 05:40 Diabetes panel 11/30/18 Range/Units 05:40 Sodium 145 (133-145) mmol/L Potassium 3.6 (3.3-5.1) mmol/L Chloride 110 H (96-108) mmol/L Carbon Dioxide 25 (22-30) mmol/L BUN 9 (6-20) mg/dl Creatinine 0.4 L (0.6-1.1) mg/dl Glucose 104 (70-105) mg/dL Calcium 8.6 (8.6-10.4) mg/dl AST 10 (0-37) U/l ALT 8 (0-40) U/l Alkaline Phosphatase 116 (39-117) U/L Total Protein 6.4 (5.9-8.4) gm/dL Albumin 3.0 L (3.2-5.2) gm/dL Triglycerides 42 (<150) mg/dl Calcium panel 11/30/18 Range/Units 05:40 Calcium 8.6 (8.6-10.4) mg/dl Phosphorus 2.8 (2.7-4.5) mg/dL Albumin 3.0 L (3.2-5.2) gm/dL Pituitary panel 11/30/18 Range/Units 05:40 Sodium 145 (133-145) mmol/L Potassium 3.6 (3.3-5.1) mmol/L Chloride 110 H (96-108) mmol/L Carbon Dioxide 25 (22-30) mmol/L BUN 9 (6-20) mg/dl Creatinine 0.4 L (0.6-1.1) mg/dl Glucose 104 (70-105) mg/dL Calcium 8.6 (8.6-10.4) mg/dl Adrenal panel 11/30/18 Range/Units 05:40 Sodium 145 (133-145) mmol/L Potassium 3.6 (3.3-5.1) mmol/L Chloride 110 H (96-108) mmol/L Carbon Dioxide 25 (22-30) mmol/L BUN 9 (6-20) mg/dl Creatinine 0.4 L (0.6-1.1) mg/dl Glucose 104 (70-105) mg/dL Calcium 8.6 (8.6-10.4) mg/dl Total Bilirubin 0.6 (0.0-1.0) mg/dL AST 10 (0-37) U/l ALT 8 (0-40) U/l Alkaline Phosphatase 116 (39-117) U/L Total Protein 6.4 (5.9-8.4) gm/dL Albumin 3.0 L (3.2-5.2) gm/dL Assessment and Plan (1) PEG tube malfunction Status: Acute Current Visit: Yes (2) Cellulitis of left abdominal wall Status: Acute Assessment and plan: Clinically improved on present therapy Current Visit: Yes (3) History of stroke with residual deficit Status: Acute Current Visit: Yes (4) Contracture of muscle of lower extremity, bilateral Status: Acute Current Visit: Yes (5) Seizure disorder as sequela of cerebrovascular accident Status: Acute Current Visit: Yes (6) Hypoxemia Status: Acute Assessment and plan: Titrate BiPAP for maximum effect Nasogastric section Chest x-ray Current Visit: Yes - Time Spent With Patient Total time spent is greater than 50% in coordination of care (as documented) at patient's floor/unit and/or counseling patient:
[2018-11-30] MEDS ORDERED: ONDANSETRON 4 MG/2 ML VIAL IV PRN (17:18)
--- NOTE | 2018-11-30 17:27 | XRay Report ---
INDICATION: Dyspnea TECHNIQUE: AP chest x-ray,supine portable COMPARISON: Previous chest x-rays dated 11/28/2018, 11/27/2018, 09/13/2018. FINDINGS:Left-sided ventriculoperitoneal shunt catheter. There is a gastrostomy tube in the left upper quadrant. Chest x-ray is of suboptimal quality due to portable technique and supine positioning. Bilateral pulmonary parenchymal infiltrates with bibasilar predominance. Appearance is consistent with pneumonia. Findings are worse than on previous examinations. Follow-up radiographs are recommended. IMPRESSION: 1. Bilateral parenchymal infiltrates consistent with pneumonia 2. Interval worsening since 11/28/2018 Interpreted and Authenticated by: Juan Mendoza 11/30/18
[2018-11-30] MEDS: DEXTROSE 5%-1/2NS W/10MEQ KCL 1,000 ML IV SCH (17:52)
[2018-11-30] MEDS ORDERED: METOCLOPRAMIDE 10 MG/2 ML VIAL IV SCH (18:00)
[2018-11-30] MEDS ORDERED: FUROSEMIDE 40 MG/4 ML VIAL IV ONE (18:01)
[2018-11-30] MEDS ORDERED: IPRATROPIUM/ALBUTEROL 3 ML AMPUL.NEB NEB ONE (18:35)
[2018-11-30] MEDS ORDERED: PHENobarbital 32.4 MG TABLET PO SCH (21:00)
[2018-11-30] MEDS ORDERED: carBAMazepine 100 MG TAB.CHEW PO SCH (21:00)
[2018-11-30] MEDS ORDERED: GABAPENTIN 300 MG CAPSULE PO SCH (21:00)
[2018-11-30] MEDS ORDERED: MIRTAZAPINE 15 MG TABLET PO SCH (21:00)
[2018-11-30] MEDS ORDERED: CARBAMAZEPINE 100 MG/5 ML PO SCH (21:00)
[2018-11-30] MEDS: METOCLOPRAMIDE 10 MG/2 ML VIAL IV SCH (21:26)
[2018-11-30] MEDS: MIRTAZAPINE 15 MG TABLET PO SCH (21:29)
[2018-11-30] MEDS: ALPRAZolam 0.5 MG TABLET PO PRN (21:29)
[2018-11-30] MEDS: PHENobarbital 32.4 MG TABLET PO SCH (21:30)
[2018-11-30] MEDS: GABAPENTIN 300 MG CAPSULE PO SCH (21:30)
[2018-12-01] MEDS: METOCLOPRAMIDE 10 MG/2 ML VIAL IV SCH ×4 (00:30→18:00)
[2018-12-01] MEDS: HYDROmorphone 2 MG/ML VIAL IV PRN ×6 (03:12→20:45)
[2018-12-01] MEDS: 0.9 % SODIUM CHLORIDE 10 ML SYRINGE IV SCH ×3 (05:51→22:49)
[2018-12-01] MEDS: IPRATROPIUM/ALBUTEROL 3 ML AMPUL.NEB NEB SCH ×6 (05:51→22:55)
[2018-12-01 06:12] LABS: ALT/SGPT 9 U/l (0-40); Albumin 3.3 gm/dL (3.2-5.2); Albumin/Globulin Ratio 0.8 (1.0-2.3); Alkaline Phosphatase 131 U/L (39-117); Bilirubin,Direct < 0.2 mg/dL (0.0-0.3); Blood Urea Nitrogen 8 mg/dl (6-20); Gamma Glutamyl Transpeptidase 123 U/L (5-36); Uric Acid 4.1 mg/dL (2.5-8.0)
[2018-12-01 06:32] LABS: Mean Cell Volume 96.3 fL (80.0-100.0); Mean Corpuscular HGB Conc 34.3 g/dL (31.0-36.0); Platelet Count 268 K/mcL (140-440); Red Cell Distribution Width 13.3 % (11.5-14.5)
[2018-12-01 06:40] LABS: Band Neutrophils % 4 % (0-10); Eosinophils % (Manual) 1 % (0-7); Lymphocytes % 20 % (15-49); Monocytes % (Manual) 5 % (1-12); Platelet Estimate NORMAL (NORMAL); RBC Morphology NORMAL (NORMAL); Segmented Neutrophils % 70 % (38-78)
--- NOTE | 2018-12-01 07:31 | Internal Med Progress Note ---
Medical - PN: Subj Patient information: Note initiated : 12/01/18 at 7:17 am Service Date, if different from initiated Date: [] Patient: Jose Alejandro Pino a 58 y/o F admitted on 11/29/18 for Peg tube fell out. Chief Complaint: [] Interval history: Ms. Pino is a 58 year old F with a history of CVA, craniotomy, PHP ENGINEER shunt ,dysphagia on PEG tube feeding ,seizure disorder, depression with anxiety who currently resides at the [facility]. Patient carries a history of significant dysphagia secondary to CVA and has a gastrostomy tube for nutrition and medications. She comes to [place] [facility] after she was directed for further evaluation in the setting of recent gastrostomy dislodgment which was replaced by a Perez's catheter. Subsequently it was noted that she had extensive discharge around the ostomy site surrounding the catheter. She subsequent developed extensive excoriation of the skin along the left flank and abdomen due to leaking gastric fluids. Concern was raised about the possibility of malpositioning of Perez's catheter in the gastrostomy orifice. Initial workup included CT abdomen which did not show any acute peritonitis or intra-abdominal fluid collection. Surgery was consulted and admitted the patient for gastrostomy tube placement in a.m. Patient is currently n.p.o. Hospitalist service was consulted in light of complex medical history including CVA/seizure disorder on multiple medications. At the time of evaluation patient is nondistressed. She has an ostomy bag over gastrostomy site. Wound care team currently addressing cheryl-gastrostomy site sk in inflammation. Patient denies fever chills but endorses to pain around the ostomy site. Patient has significant expressive aphasia. She does not appear to be in distress and breathing comfortably. 11/29-patient doing well. No overnight events. Due for PEG tube placement today. IV Keppra for seizure prophylaxis load as patient unable to take per tube antiseizure medications. Continue IV Keppra until able to use PEG tube. No overnight fever or chills. No concerns per staff. Ongoing wound care around the gastrostomy site 11/30 did have a temp spike middle of night. Had procedure (PEG placed) yesterday. No otter overnight events. 12/01 Yesterday patient was on 3 of liters once a day and then at 3:00 oxygen saturation was down in the 80s placed on nonrebreather brought up in the 90s chest x-ray and ABG done with chest x-ray showing bilateral infiltrates. She is put on BiPAP and sent to the unit. Unable to corroborate weights and I's and O's and given elevated BNP concern for some component of volume overload patient was given a one-time dose of Lasix IV last night with 1630 out. No overnight events. Chest x-ray today looks more left lung involvement with some vascular congestion noted on the right as well. Doing well on BiPAP and titrating down oxygen. TPN starting. Pt nonverbal, unable to gather ROS. - Constitutional Vitals: Vital Signs Temp Pulse Resp BP Pulse Ox 100.2 F H 101 H 13 113/64 98 12/01/18 07:00 12/01/18 06:50 12/01/18 07:12 12/01/18 07:00 12/01/18 07:12 Period Temp Pulse Resp BP Sys/Honeycutt Pulse Ox Last 24 Hr 96.8 F-100.2 F 87-101 10-35 96-151/55-139 83-100 Intake and Output 11/30/18 12/01/18 12/01/18 21:59 05:59 13:59 Output Total 2 1630 30 Balance -2 -1630 -30 Weight 65.771 kg Intake & Output: Intake & Output 11/30/18 12/01/18 12/01/18 21:59 05:59 13:59 Output Total 2 1630 30 Balance -2 -1630 -30 Weight 65.771 kg Output: Urine Catheter Amount 1630 30 # of times incontinent of urine 2 Other: Urine Appearance Fem Cath Clear Clear Urine Color Dark Yellow Straw Fem Cath Dark Yellow Dark Yellow Urine Odor Fem Cath Normal Normal Stool Size Small Stool Color Brown Stool Consistency Soft Loose # of times incontinent of 1 Bowels Exam: General: Alert, Awake, No acute Distress, nonverbal at baseline Eyes/N/T: EOMI, Head/Neck: neck supple, CV: RRR, No murmurs, Pulm: Clear laterally on right, diminished on left Abd: Drainage around PEG site, dressings in place Ext: no clubbing/cyanosis/edema Neuro: Alert, right hemiparesis/contractures. does follow verbal commands, expressive aphasia Skin: warm/dry Medical - PN: Obj Da - Labs CBC & Chem 7: 12/01/18 03:22 12/01/18 03:22 Labs: Abnormal Lab Results 12/01/18 12/01/18 11/30/18 03:22 03:22 18:17 WBC 14.9 H RBC 3.30 L Hgb 10.9 L Hct 31.8 L [place] % (Auto) Chloride Creatinine 0.4 L Glucose GGT 123 H Alkaline Phosphatase 131 H C-Reactive Protein NT-Pro-B Natriuret Pep 4060.0 H Albumin Globulin 3.9 H Albumin/Globulin Ratio 0.8 L 11/30/18 11/30/18 11/29/18 05:40 05:40 05:41 WBC RBC 3.34 L Hgb 10.7 L Hct 32.2 L [place] % (Auto) Chloride 110 H Creatinine 0.4 L 0.4 L Glucose 113 H GGT 59 H 46 H Alkaline Phosphatase 130 H C-Reactive Protein NT-Pro-B Natriuret Pep Albumin 3.0 L Globulin Albumin/Globulin Ratio 0.9 L 0.9 L 11/29/18 11/28/18 11/28/18 05:41 13:28 13:28 WBC RBC 3.73 L Hgb 11.8 L Hct 35.7 L [place] % (Auto) Chloride Creatinine 0.4 L Glucose GGT Alkaline Phosphatase 157 H C-Reactive Protein 5.0 H NT-Pro-B Natriuret Pep Albumin Globulin 4.2 H Albumin/Globulin Ratio 0.9 L 11/28/18 13:28 WBC RBC Hgb Hct [place] % (Auto) 12.1 H Chloride Creatinine Glucose GGT Alkaline Phosphatase C-Reactive Protein NT-Pro-B Natriuret Pep Albumin Globulin Albumin/Globulin Ratio Meds: Medications Albuterol Sulfate (Ventolin) 2.5 mg NEB Q2HP PRN PRN Reason: Shortness Of Breath Albuterol/Ipratropium (Duoneb) 3 ml NEB Q4HRT [facility] Last Admin: 12/01/18 06:49 Dose: 3 ml Documented by: Albuterol/Ipratropium (Duoneb) 3 ml NEB Q6HP PRN PRN Reason: Shortness Of Breath Alprazolam (Xanax) 0.5 mg PO BIDP PRN PRN Reason: Anxiety Last Admin: 11/30/18 21:29 Dose: 0.5 mg Documented by: Carbamazepine (Tegretol) 200 mg PO DAILY [facility] Carbamazepine (Tegretol) 300 mg PO QPM [facility] Last Admin: 11/30/18 21:34 Dose: 300 mg Documented by: Carbamazepine (Tegretol) 400 mg PO QAM [facility] Citalopram Hydrobromide (Celexa) 30 mg PO DAILY [facility] Gabapentin (Neurontin) 900 mg PO TID [facility] Last Admin: 11/30/18 21:30 Dose: 900 mg Documented by: Guaifenesin (Mucinex) 600 mg PO BIDP PRN PRN Reason: Congestion Hydromorphone HCl (Dilaudid) 1 mg IV Q2HP PRN PRN Reason: PAIN LEVEL > 6 Last Admin: 12/01/18 06:50 Dose: 1 mg Documented by: Potassium Chloride/Dextrose/Sod Cl (Dextrose 5%-1/2ns W/10meq Kcl) 1,000 mls @ 50 mls/hr IV .Q20H [facility] Last Admin: 11/30/18 17:52 Dose: 50 mls/hr Documented by: Levofloxacin (Levaquin) 750 mg in 150 mls @ 100 mls/hr IV Q24H [facility] Metoclopramide HCl (Reglan) 10 mg IV Q6 [facility] Last Admin: 12/01/18 06:00 Dose: 10 mg Documented by: Mirtazapine (Remeron) 15 mg PO HS [facility] Last Admin: 11/30/18 21:29 Dose: 15 mg Documented by: Mometasone Furoate (Nasonex) 2 spray EFREM DAILY [facility] Ondansetron HCl (Zofran) 4 mg IV Q6HP PRN PRN Reason: Nausea And Vomiting Pantoprazole Sodium (Protonix) 40 mg IV BIDAC [facility] Phenobarbital (Phenobarbital) 64.8 mg PO BID [facility] Last Admin: 11/30/18 21:30 Dose: 64.8 mg Documented by: Sodium Chloride (Saline Flush) 10 ml IV Q8 [facility] Last Admin: 12/01/18 05:51 Dose: Not Given Documented by: Medical - PN: A/P - Time Spent With Patient Total time spent is greater than 50% in coordination of care (as documented) at patient's floor/unit and/or counseling patient: - Narrative A/P Narrative: A: *Acute hypoxic resp failure: -Aspiration pneumonitis vs developing Asp PNA vs component of CHF -requiring bipap but titrating down oxygen need *PEG tube malfunction: s/p surgical correction 11/29, per surgery *Abd wall cellulitis: per surgery *h/o CVA w/Right hemiparesis status post PHP ENGINEER shunt/temporal lobectomy and craniotomy: patient at baseline with expressive aphasia. *anxiety/depression: continue home medications once G-tube placed. *Seizure d/o: now on IV Keppra until medications can be administered via G-tube. on carbamazepine/gabapentin/phenobarbital at outpatient. *asthma continue bronchodilators Plan: -levaquin/flagyl -wean O2 -monitor i/o's -G-tube placement yesterday by surgeon; TPN -IV PPI to allow gastric acid suppression and minimize leakage -Wound care -IV Keppra medications as indicated. -Restart home meds Post G-tube placement when able -ppx: SCD DNR Medical - PN: Qual - VTE Deep Vein Thrombosis/Pulmonary Embolism Present on Admission: No
[2018-12-01] MEDS: metroNIDAZOLE 500 MG/100 ML BAG IV SCH ×3 (08:28→22:48)
[2018-12-01] MEDS: PANTOPRAZOLE 40 MG VIAL IV SCH ×2 (08:28→16:12)
[2018-12-01] MEDS: GABAPENTIN 300 MG CAPSULE PO SCH ×3 (08:40→22:48)
[2018-12-01] MEDS: CITALOPRAM 20 MG TABLET PO SCH (08:40)
[2018-12-01] MEDS: PHENobarbital 32.4 MG TABLET PO SCH ×2 (08:40→22:49)
[2018-12-01] MEDS: MOMETASONE NAS SPRAY 1 SPRAY BOTTLE NAS SCH (08:44)
[2018-12-01] MEDS: carBAMazepine 100 MG TAB.CHEW PO SCH ×3 (08:44→16:09)
[2018-12-01] MEDS ORDERED: CITALOPRAM 20 MG TABLET PO SCH (09:00)
[2018-12-01] MEDS ORDERED: CARBAMAZEPINE 100 MG/5 ML PO SCH ×2 (09:00)
[2018-12-01] MEDS ORDERED: MOMETASONE NAS SPRAY 1 SPRAY BOTTLE NAS SCH (09:00)
--- NOTE | 2018-12-01 09:44 | XRay Report ---
INDICATION: Follow-up pneumonia TECHNIQUE: AP chest x-ray,portable semiupright COMPARISON: Previous chest x-rays dated 11/30/2018, 11/28/2018, 11/27/2018 FINDINGS:Interval worsening. There is left lung volume loss. There is increased left pleural effusion and left lung infiltrates. Appearance remains consistent with pneumonia. No new right lung infiltrates. No evidence for congestive heart failure IMPRESSION: 1. Left lung volume loss. Increased left pleural effusion and infiltrate consistent with pneumonia 2. Findings are worse than on 11/30/2018 Interpreted and Authenticated by: Juan Mendoza 12/01/18
--- NOTE | 2018-12-01 09:45 | XRay Report ---
CLINICAL INFORMATION: Abdominal pain TECHNIQUE: Supine and upright abdomen COMPARISON: Previous CT scan dated 11/28/2018 FINDINGS: There is a percutaneous gastrostomy tube in the left side of the abdomen. There is a ventriculoperitoneal shunt catheter. Bowel gas pattern is unremarkable. No mechanical small bowel obstruction. Previous CT scan demonstrated a distal colonic impaction and probable pneumatosis. Proptosis is not visible on plain film examination. No pneumoperitoneum. No biliary or portal venous gas IMPRESSION: Unremarkable bowel gas pattern Interpreted and Authenticated by: Juan Mendoza 12/01/18
[2018-12-01] MEDS: LEVOFLOXACIN 750 MG/150 ML BAG IV SCH (09:50)
[2018-12-01] MEDS ORDERED: TPN PER PHARMACY PO SCH (11:30)
[2018-12-01] MEDS ORDERED: DEXTROSE 31 GM ORAL.SUSP PO PRN (12:19)
[2018-12-01] MEDS ORDERED: DEXTROSE 50% 50 ML VIAL IV PRN (12:19)
--- NOTE | 2018-12-01 12:26 | Procedure Note ---
Procedures - Central Line Placement Right IJ Date of Procedure: 12/01/18 Time out performed: Yes Patient placed on monitor/pulse ox: Yes MD prep: mask, sterile gown, sterile gloves, cap Central line prep: 2% Chlorhexidine scrub Local anesthesia used: lidocaine 1% Amount of anesthesia used (mls): 3 Ultrasound used for placement: Yes Central line lumen inserted: quad, 16 cm Post procedure: sutured in place Patient tolerated procedure: well Additional comments: Stat chest x-ray ordered to confirm placement
--- NOTE | 2018-12-01 12:46 | XRay Report ---
INDICATION: Central line placement TECHNIQUE: AP chest x-ray,portable COMPARISON: Previous chest x-ray dated 12/01/2018 FINDINGS:Right central venous catheter with its tip in appropriate position for superior vena cava. There is no pneumothorax. Left lung appears somewhat improved since previous examination dated 12/01/2018. IMPRESSION: 1. Right central venous catheter in superior vena cava 2. No pneumothorax Interpreted and Authenticated by: Juan Mendoza 12/01/18
[2018-12-01] MEDS: DEXTROSE 5%-1/2NS W/10MEQ KCL 1,000 ML IV SCH ×2 (13:47→20:26)
[2018-12-01 14:04] LABS: Prealbumin 14.3 mg/dl (20-40)
[2018-12-01] MEDS ORDERED: CALCIUM GLUCONATE 5 MEQ, MAGNESIUM SULFATE 8.12 MEQ, SODIUM CHLORIDE 20 MEQ, POTASSIUM ... IV SCH (15:00)
--- NOTE | 2018-12-01 15:05 | XRay Report ---
CLINICAL INFORMATION: Status post nasogastric tube placement TECHNIQUE: AP supine abdomen COMPARISON: Previous examination dated 12/01/2018 FINDINGS: Interval placement of esophagogastric tube with its tip in the stomach. Bowel gas pattern is nonspecific and nonobstructive. No change in left ventriculoperitoneal shunt catheter and left sided percutaneous gastrostomy tube IMPRESSION: Esophagogastric tube in the stomach Interpreted and Authenticated by: Juan Mendoza 12/01/18
--- NOTE | 2018-12-01 15:12 | General Surgery Progress Note ---
Subjective Patient reports: still having pain, flatus, bowel movement, shortness of breath, fever Narrative: Note initiated : 12/01/18 at 2:45 pm Service Date, if different from initiated Date: [] Patient: Jose Alejandro Pino 58 y/o F admitted on 11/29/18 for Peg tube fell out. Chief Complaint: [patient has had worsening pneumonitis. Her temperature was peaked at 100.3. Her white blood count increased to 14.9. Hemoglobin 10.6; BUN and creatinine are normal . Because of increased output through her fistula nasogastric tube was inserted to decompress the stomach.] Objective Temp Pulse Resp BP Pulse Ox 100.3 F H 111 H 16 117/62 95 12/01/18 08:00 12/01/18 14:40 12/01/18 14:40 12/01/18 10:00 12/01/18 14:38 - Additional Data Intake & Output - Last 24 hours: Intake & Output 11/29/18 11/30/18 12/01/18 12/02/18 05:59 05:59 05:59 05:59 Intake Total 1000 1076 150 340 Output Total 2 1 1633 118 Balance 998 1075 -1483 222 Weight 152 lb 156 lb 12.8 oz 145 lb 145 lb - General physical appearance moderate distress, moderate pain, chronically ill - Eyes PERRL, normal ocular movement - ENT normal pinna, normal nares, normal mucosa, no hearing loss, no congestion - Neck no masses, no bruits, trachea midline, no lymphadenopathy, no venous distension - Respiratory other (coarse tubular breath sounds bilaterally with bilateral rhonchi) - Cardiovascular Cardiovascular exam: Present: normal rate and rhythm, +S1, +S2, tachycardia. Absent: JVD - Abdomen tender ( cellulitis around the fistula site is about the same; she has good active bowel sounds) - Labs 12/01/18 03:22 12/01/18 03:22 Diabetes panel 12/01/18 Range/Units 03:22 Sodium 141 (133-145) mmol/L Potassium 3.5 (3.3-5.1) mmol/L Chloride 103 (96-108) mmol/L Carbon Dioxide 25 (22-30) mmol/L BUN 8 (6-20) mg/dl Creatinine 0.4 L (0.6-1.1) mg/dl Glucose 94 (70-105) mg/dL Calcium 8.7 (8.6-10.4) mg/dl AST 13 (0-37) U/l ALT 9 (0-40) U/l Alkaline Phosphatase 131 H (39-117) U/L Total Protein 7.2 (5.9-8.4) gm/dL Albumin 3.3 (3.2-5.2) gm/dL Triglycerides 67 (<150) mg/dl Calcium panel 12/01/18 Range/Units 03:22 Calcium 8.7 (8.6-10.4) mg/dl Phosphorus 2.8 (2.7-4.5) mg/dL Albumin 3.3 (3.2-5.2) gm/dL Pituitary panel 12/01/18 Range/Units 03:22 Sodium 141 (133-145) mmol/L Potassium 3.5 (3.3-5.1) mmol/L Chloride 103 (96-108) mmol/L Carbon Dioxide 25 (22-30) mmol/L BUN 8 (6-20) mg/dl Creatinine 0.4 L (0.6-1.1) mg/dl Glucose 94 (70-105) mg/dL Calcium 8.7 (8.6-10.4) mg/dl Adrenal panel 12/01/18 Range/Units 03:22 Sodium 141 (133-145) mmol/L Potassium 3.5 (3.3-5.1) mmol/L Chloride 103 (96-108) mmol/L Carbon Dioxide 25 (22-30) mmol/L BUN 8 (6-20) mg/dl Creatinine 0.4 L (0.6-1.1) mg/dl Glucose 94 (70-105) mg/dL Calcium 8.7 (8.6-10.4) mg/dl Total Bilirubin 0.7 (0.0-1.0) mg/dL AST 13 (0-37) U/l ALT 9 (0-40) U/l Alkaline Phosphatase 131 H (39-117) U/L Total Protein 7.2 (5.9-8.4) gm/dL Albumin 3.3 (3.2-5.2) gm/dL Assessment and Plan (1) PEG tube malfunction Status: Acute Assessment and plan: Continue nasogastric tube suction Delayed PEG tube feedings Start amlodipine and enalapril for hypertension Current Visit: Yes (2) Cellulitis of left abdominal wall Status: Acute Assessment and plan: Clinically improved on present therapy Current Visit: Yes (3) History of stroke with residual deficit Status: Acute Current Visit: Yes (4) Contracture of muscle of lower extremity, bilateral Status: Acute Current Visit: Yes (5) Seizure disorder as sequela of cerebrovascular accident Status: Acute Current Visit: Yes (6) Hypoxemia Status: Acute Assessment and plan: Titrate BiPAP for maximum effect Nasogastric section Chest x-ray Current Visit: Yes - Time Spent With Patient Total time spent is greater than 50% in coordination of care (as documented) at patient's floor/unit and/or counseling patient:
[2018-12-01] MEDS: FAT EMULSION 20% 250 ML in PREMIX 1 BAG IV SCH (15:17)
[2018-12-01] MEDS: INSULIN LISPRO 1 UNIT/0.01 ML UNIT SQ SCH (18:01)
[2018-12-01] MEDS ORDERED: 0.9 % SODIUM CHLORIDE 10 ML SYRINGE IV SCH (21:00)
[2018-12-01] MEDS ORDERED: 0.9 % SODIUM CHLORIDE 500 ML IV ONE (21:10)
[2018-12-01] MEDS: MIRTAZAPINE 15 MG TABLET PO SCH (22:48)
[2018-12-02] MEDS: INSULIN LISPRO 1 UNIT/0.01 ML UNIT SQ SCH ×4 (00:22→17:39)
[2018-12-02] MEDS: METOCLOPRAMIDE 10 MG/2 ML VIAL IV SCH ×4 (00:22→17:11)
[2018-12-02] MEDS: HYDROmorphone 2 MG/ML VIAL IV PRN ×9 (01:31→19:35)
[2018-12-02] MEDS: IPRATROPIUM/ALBUTEROL 3 ML AMPUL.NEB NEB SCH ×6 (04:32→23:22)
[2018-12-02 04:58] LABS: Basophils # (Auto) 0 K/mcL (0.0-0.3); Basophils % (Auto) 0.2 % (0.0-2.0); Eosinophils # (Auto) 0 K/mcL (0.0-0.7); Eosinophils % (Auto) 0 % (0.0-7.0); Granulocytes % (Auto) 78.4 % (38.0-78.0); Lymphocytes # (Auto) 1.9 K/mcL (1.5-4.8); Lymphocytes % (Auto) 14.8 % (15.5-49.0); Mean Cell Volume 96.2 fL (80.0-100.0); Mean Corpuscular HGB Conc 33.1 g/dL (31.0-36.0); Monocytes # (Auto) 0.8 K/mcL (0.1-0.9); Monocytes % (Auto) 6.6 % (1.0-12.0); Platelet Count 185 K/mcL (140-440); RBC 3.19 M/mcL (4.00-5.20); Red Cell Distribution Width 13.3 % (11.5-14.5)
[2018-12-02] MEDS: metroNIDAZOLE 500 MG/100 ML BAG IV SCH ×3 (05:41→22:43)
[2018-12-02] MEDS: 0.9 % SODIUM CHLORIDE 10 ML SYRINGE IV SCH ×3 (05:47→22:43)
[2018-12-02 05:54] LABS: ALT/SGPT 8 U/l (0-40); Albumin 2.9 gm/dL (3.2-5.2); Albumin/Globulin Ratio 0.8 (1.0-2.3); Alkaline Phosphatase 112 U/L (39-117); Bilirubin,Direct 0.4 mg/dL (0.0-0.3); Blood Urea Nitrogen 8 mg/dl (6-20); Gamma Glutamyl Transpeptidase 124 U/L (5-36); Uric Acid 2.9 mg/dL (2.5-8.0)
[2018-12-02] MEDS ORDERED: POTASSIUM CHLORIDE 80 MEQ in DEXTROSE 5% IN WATER 500 ML IV ONE (06:49)
--- NOTE | 2018-12-02 06:59 | Internal Med Progress Note ---
Medical - PN: Subj Patient information: Note initiated : 12/02/18 at 6:55 am Service Date, if different from initiated Date: [] Patient: Jose Alejandro Pino a 58 y/o F admitted on 11/29/18 for Peg tube fell out. Chief Complaint: [] Interval history: Ms. Pino is a 58 year old F with a history of CVA, craniotomy, ORDER ANALYST shunt ,dysphagia on PEG tube feeding ,seizure disorder, depression with anxiety who currently resides at the [facility]. Patient carries a history of significant dysphagia secondary to CVA and has a gastrostomy tube for nutrition and medications. She comes to [place] [facility] after she was directed for further evaluation in the setting of recent gastrostomy dislodgment which was replaced by a Perez's catheter. Subsequently it was noted that she had extensive discharge around the ostomy site surrounding the catheter. She subsequent developed extensive excoriation of the skin along the left flank and abdomen due to leaking gastric fluids. Concern was raised about the possibility of malpositioning of Perez's catheter in the gastrostomy orifice. Initial workup included CT abdomen which did not show any acute peritonitis or intra-abdominal fluid collection. Surgery was consulted and admitted the patient for gastrostomy tube placement in a.m. Patient is currently n.p.o. Hospitalist service was consulted in light of complex medical history including CVA/seizure disorder on multiple medications. At the time of evaluation patient is nondistressed. She has an ostomy bag over gastrostomy site. Wound care team currently addressing cheryl-gastrostomy site sk in inflammation. Patient denies fever chills but endorses to pain around the ostomy site. Patient has significant expressive aphasia. She does not appear to be in distress and breathing comfortably. 11/29-patient doing well. No overnight events. Due for PEG tube placement today. IV Keppra for seizure prophylaxis load as patient unable to take per tube antiseizure medications. Continue IV Keppra until able to use PEG tube. No overnight fever or chills. No concerns per staff. Ongoing wound care around the gastrostomy site 11/30 did have a temp spike middle of night. Had procedure (PEG placed) yesterday. No otter overnight events. 12/01 Yesterday patient was on 3 of liters once a day and then at 3:00 oxygen saturation was down in the 80s placed on nonrebreather brought up in the 90s chest x-ray and ABG done with chest x-ray showing bilateral infiltrates. She is put on BiPAP and sent to the unit. Unable to corroborate weights and I's and O's and given elevated BNP concern for some component of volume overload patient was given a one-time dose of Lasix IV last night with 1630 out. No overnight events. Chest x-ray today looks more left lung involvement with some vascular congestion noted on the right as well. Doing well on BiPAP and titrating down oxygen. TPN starting. Pt nonverbal, unable to gather ROS. 12/02 Patient has episodes of sudden respiratory decompensation in her oxygenation status. It seems that she is aspirating on her secretions. She is having quite a bit of secretions that are thick and white/green. Respiratory therapist was able to suction out a lot of mucus this morning. CVP is 4-6. - Constitutional Vitals: Vital Signs Temp Pulse Resp BP Pulse Ox 99.6 F H 101 H 15 133/73 98 12/02/18 05:00 12/01/18 23:20 12/02/18 06:09 12/02/18 06:01 12/02/18 06:09 Period Temp Pulse Resp BP Sys/Honeycutt Pulse Ox Last 24 Hr 98.2 F-100.3 F 87-120 11-41 97-203/60-136 56-100 Intake and Output 12/01/18 12/02/18 12/02/18 21:59 05:59 13:59 Intake Total 100 350 Output Total 144 190 Balance -44 160 Weight 65.453 kg Intake & Output: Intake & Output 12/01/18 12/02/18 12/02/18 21:59 05:59 13:59 Intake Total 100 350 Output Total 144 190 Balance -44 160 Weight 65.453 kg Intake: IV 100 350 Sodium Chloride 0.9% 500 ml @ 0 As Directed IV BOLUS ONE Rx#: [id number] Intralipid 20% 250 ml In Premix 250 1 Bag @ 25 mls/hr IV Q24H [facility] Rx#:[id number] Output: Urine Catheter Amount 144 190 Other: Urine Appearance Fem Cath Cloudy Sediment Urine Color Dark Graciela Tea Colored Fem Cath Dark Yellow Straw Tea Colored Urine Odor Strong Exam: General: Alert, Awake, No acute Distress, nonverbal at baseline Eyes/N/T: EOMI, Head/Neck: neck supple, CV: RRR, No murmurs, Pulm: b/l rhonchi Abd: Drainage around PEG site, dressings in place Ext: no clubbing/cyanosis/edema Neuro: Alert, right hemiparesis/contractures. does follow verbal commands, expre ssive aphasia Skin: warm/dry Medical - PN: Obj Da - Labs CBC & Chem 7: 12/02/18 03:30 12/02/18 03:30 Labs: Abnormal Lab Results 12/02/18 12/02/18 12/01/18 03:30 03:30 11:48 WBC 12.5 H RBC 3.19 L Hgb 10.1 L Hct 30.7 L Gran % 78.4 H Lymph % (Auto) 14.8 L Gran # 9.8 H Potassium 2.6 L* Chloride Creatinine 0.3 L Glucose 147 H Calcium 8.5 L Phosphorus 2.0 L Direct Bilirubin 0.4 H GGT 124 H Alkaline Phosphatase NT-Pro-B Natriuret Pep 2394.0 H Albumin 2.9 L Globulin Albumin/Globulin Ratio 0.8 L Prealbumin 14.3 L 12/01/18 12/01/18 11/30/18 03:22 03:22 18:17 WBC 14.9 H RBC 3.30 L Hgb 10.9 L Hct 31.8 L Gran % Lymph % (Auto) Gran # Potassium Chloride Creatinine 0.4 L Glucose Calcium Phosphorus Direct Bilirubin GGT 123 H Alkaline Phosphatase 131 H NT-Pro-B Natriuret Pep 4060.0 H Albumin Globulin 3.9 H Albumin/Globulin Ratio 0.8 L Prealbumin 11/30/18 11/30/18 11/29/18 05:40 05:40 05:41 WBC RBC 3.34 L Hgb 10.7 L Hct 32.2 L Gran % Lymph % (Auto) Gran # Potassium Chloride 110 H Creatinine 0.4 L 0.4 L Glucose 113 H Calcium Phosphorus Direct Bilirubin GGT 59 H 46 H Alkaline Phosphatase 130 H NT-Pro-B Natriuret Pep Albumin 3.0 L Globulin Albumin/Globulin Ratio 0.9 L 0.9 L Prealbumin Meds: Medications Albuterol Sulfate (Ventolin) 2.5 mg NEB Q2HP PRN PRN Reason: Shortness Of Breath Albuterol/Ipratropium (Duoneb) 3 ml NEB Q4HRT [facility] Last Admin: 12/02/18 04:32 Dose: Not Given Documented by: Albuterol/Ipratropium (Duoneb) 3 ml NEB Q6HP PRN PRN Reason: Shortness Of Breath Alprazolam (Xanax) 0.5 mg PO BIDP PRN PRN Reason: Anxiety Last Admin: 11/30/18 21:29 Dose: 0.5 mg Documented by: Carbamazepine (Tegretol) 200 mg PO DAILY@1100 [facility] Last Admin: 12/01/18 12:31 Dose: 200 mg Documented by: Carbamazepine (Tegretol) 400 mg PO DAILY@0730 [facility] Last Admin: 12/01/18 08:44 Dose: 400 mg Documented by: Carbamazepine (Tegretol) 300 mg PO DAILY@1630 [facility] Last Admin: 12/01/18 16:09 Dose: 300 mg Documented by: Citalopram Hydrobromide (Celexa) 30 mg PO DAILY [facility] Last Admin: 12/01/18 08:40 Dose: 30 mg Documented by: Dextrose (Dextrose 50%) 50 ml IV UD PRN PRN Reason: Hypoglycemia Diagnostic Test (Pha) (Accu-Chek) 1 each FS Q6 [facility] Last Admin: 12/02/18 05:46 Dose: 1 each Documented by: Gabapentin (Neurontin) 900 mg PO TID [facility] Last Admin: 12/01/18 22:48 Dose: 900 mg Documented by: Glucose (Insta-Glucose) 31 gm PO UD PRN PRN Reason: Hypoglycemia Guaifenesin (Mucinex) 600 mg PO BIDP PRN PRN Reason: Congestion Hydromorphone HCl (Dilaudid) 1 mg IV Q2HP PRN PRN Reason: PAIN LEVEL > 6 Last Admin: 12/02/18 06:41 Dose: 1 mg Documented by: Potassium Chloride/Dextrose/Sod Cl (Dextrose 5%-1/2ns W/10meq Kcl) 1,000 mls @ 50 mls/hr IV .Q20H [facility] Last Admin: 12/01/18 20:26 Dose: 50 mls/hr Documented by: Levofloxacin (Levaquin) 750 mg in 150 mls @ 100 mls/hr IV Q24H [facility] Last Infusion: 12/01/18 12:33 Dose: Infused Documented by: Metronidazole (Flagyl) 500 mg in 100 mls @ 100 mls/hr IV Q8H [facility] Last Admin: 12/02/18 05:41 Dose: 100 mls/hr Documented by: Fat Emulsion Intravenous 250 (ml/ Premix) 250 mls @ 25 mls/hr IV Q24H [facility] Last Infusion: 12/02/18 01:24 Dose: Infused Documented by: Calcium Gluconate 5 meq/Magnesium Sulfate 8.12 meq/Sodium Chloride 20 meq/Potassium Chloride 20 meq/Potassium Phosphate 40 meq/Multivitamins/Minerals 10 ml/Selenium 60 mcg/ Amino Acids 1,048.3435 mls @ 20 mls/hr IV Q24H [facility] Last Admin: 12/01/18 15:17 Dose: 20 mls/hr Documented by: Potassium Chloride 80 meq/ (Dextrose) 540 mls @ 67.5 mls/hr IV ONCE ONE Stop: 12/02/18 14:48 Insulin Human Lispro (Humalog) 0 unit SQ Q6 [facility]; Protocol Last Admin: 12/02/18 05:46 Dose: Not Given Documented by: Metoclopramide HCl (Reglan) 10 mg IV Q6 [facility] Last Admin: 12/02/18 05:41 Dose: 10 mg Documented by: Mirtazapine (Remeron) 15 mg PO HS [facility] Last Admin: 12/01/18 22:48 Dose: 15 mg Documented by: Mometasone Furoate (Nasonex) 2 spray EFREM DAILY [facility] Last Admin: 12/01/18 08:44 Dose: Not Given Documented by: Ondansetron HCl (Zofran) 4 mg IV Q6HP PRN PRN Reason: Nausea And Vomiting Pantoprazole Sodium (Protonix) 40 mg IV BIDAC [facility] Last Admin: 12/01/18 16:12 Dose: 40 mg Documented by: Phenobarbital (Phenobarbital) 64.8 mg PO BID [facility] Last Admin: 12/01/18 22:49 Dose: 64.8 mg Documented by: Sodium Chloride (Saline Flush) 10 ml IV Q8 [facility] Last Admin: 12/02/18 05:47 Dose: Not Given Documented by: Medical - PN: A/P - Time Spent With Patient Total time spent is greater than 50% in coordination of care (as documented) at patient's floor/unit and/or counseling patient: - Narrative A/P Narrative: A: *Acute hypoxic resp failure: -Aspiration pneumonitis vs Asp PNA -requiring bipap *Aspiration PNA: *PEG tube malfunction: s/p surgical correction 11/29, per surgery *Abd wall cellulitis: per surgery *h/o CVA w/Right hemiparesis status post ORDER ANALYST shunt/temporal lobectomy and craniotomy: patient at baseline with expressive aphasia. *anxiety/depression: continue home medications once G-tube placed. *Seizure d/o: now on IV Keppra until medications can be administered via G-tube. on carbamazepine/gabapentin/phenobarbital at outpatient. *asthma continue bronchodilators *Goal of care: respiratory status seems to wax/wane, no POA (father , sister trying to become POA) Plan: -cefepime/flagyl -wean O2, wean off bipap if/when able -monitor i/o's -TPN -IV PPI to allow gastric acid suppression and minimize leakage -Wound care -IV Keppra medications as indicated. -Restart home meds Post G-tube placement when able -ppx: SCD DNR Medical - PN: Qual - VTE Deep Vein Thrombosis/Pulmonary Embolism Present on Admission: No
--- NOTE | 2018-12-02 07:56 | XRay Report ---
INDICATION: Abnormal physical examination. Decreased breath sounds. TECHNIQUE: AP chest x-ray,portable upright COMPARISON: Previous examinations dated 12/01/2018, 11/30/2018, 11/28/2018 FINDINGS:No change in position of esophagogastric tube and right central venous catheter. Bilateral, bibasilar infiltrates. Findings are worse than on 12/01/2018. Appearance is consistent with pneumonia. Follow-up radiograph is recommended IMPRESSION: 1. Bibasilar pulmonary parenchymal infiltrates 2. Appearance is worse than on 12/01/2018 Interpreted and Authenticated by: Juan Mendoza 12/02/18
[2018-12-02] MEDS: PANTOPRAZOLE 40 MG VIAL IV SCH ×3 (07:59→20:53)
[2018-12-02] MEDS: PHENobarbital 32.4 MG TABLET PO SCH ×2 (08:27→21:50)
[2018-12-02] MEDS: CITALOPRAM 20 MG TABLET PO SCH (08:27)
[2018-12-02] MEDS: GABAPENTIN 300 MG CAPSULE PO SCH ×3 (08:28→21:50)
[2018-12-02] MEDS: LEVOFLOXACIN 750 MG/150 ML BAG IV SCH ×2 (08:28→09:23)
[2018-12-02] MEDS: carBAMazepine 100 MG TAB.CHEW PO SCH ×3 (08:40→16:31)
[2018-12-02] MEDS: MOMETASONE NAS SPRAY 1 SPRAY BOTTLE NAS SCH (09:12)
[2018-12-02] MEDS: CEFEPIME 2 GM VIAL IV SCH ×3 (09:23→22:43)
[2018-12-02] MEDS: DEXTROSE 5%-1/2NS W/10MEQ KCL 1,000 ML IV SCH ×2 (09:24→21:21)
[2018-12-02] MEDS: ACETAMINOPHEN 1,000 MG/100 ML BOTTLE IV PRN ×2 (09:48→20:15)
[2018-12-02] MEDS: SCOPOLAMINE 1 PATCH PATCH TOPICAL SCH (10:06)
[2018-12-02] MEDS ORDERED: POTASSIUM PHOSPHATE 20 MEQ in DEXTROSE 5% IN WATER 250 ML IV ONE (12:00)
[2018-12-02] MEDS ORDERED: CALCIUM GLUCONATE 5 MEQ, MAGNESIUM SULFATE 8.12 MEQ, SODIUM CHLORIDE 20 MEQ, POTASSIUM ... IV SCH (15:00)
[2018-12-02] MEDS: FAT EMULSION 20% 250 ML in PREMIX 1 BAG IV SCH (16:33)
--- NOTE | 2018-12-02 16:49 | General Surgery Progress Note ---
Subjective Patient reports: shortness of breath, fever Narrative: Note initiated : 12/02/18 at 4:46 pm Service Date, if different from initiated Date: [] Patient: Jose Alejandro Pino 58 y/o F admitted on 11/29/18 for Peg tube fell out. Chief Complaint: [patient is having continued respiratory difficulty. She had periods of desaturation that responded to oral tracheal suction and increase BiPAP treatment. Minimally she appears to be more depressed clinically than she was on yesterday. The output through her gastrocutaneous fistula is about the same. Nasogastric suction does not seem to reduce the amount of slough because of the large amount of drainage. Chest x-ray appears to be worse.] Objective Temp Pulse Resp BP Pulse Ox 98.0 F 118 H 11 L 134/67 97 12/02/18 16:01 12/02/18 15:10 12/02/18 16:01 12/02/18 16:01 12/02/18 16:01 - Additional Data Intake & Output - Last 24 hours: Intake & Output 11/30/18 12/01/18 12/02/18 12/03/18 05:59 05:59 05:59 05:59 Intake Total 0407 858 7578 225 Output Total 1 1633 452 251 Balance 1075 -1483 1338 -26 Weight 156 lb 12.8 oz 145 lb 144 lb 4.8 oz 144 lb 4.8 oz - Labs 12/02/18 03:30 12/02/18 03:30 Diabetes panel 12/02/18 Range/Units 03:30 Sodium 142 (133-145) mmol/L Potassium 2.6 L* (3.3-5.1) mmol/L Chloride 105 (96-108) mmol/L Carbon Dioxide 29 (22-30) mmol/L BUN 8 (6-20) mg/dl Creatinine 0.3 L (0.6-1.1) mg/dl Glucose 147 H (70-105) mg/dL Calcium 8.5 L (8.6-10.4) mg/dl AST 10 (0-37) U/l ALT 8 (0-40) U/l Alkaline Phosphatase 112 (39-117) U/L Total Protein 6.4 (5.9-8.4) gm/dL Albumin 2.9 L (3.2-5.2) gm/dL Triglycerides 34 (<150) mg/dl Calcium panel 12/02/18 Range/Units 03:30 Calcium 8.5 L (8.6-10.4) mg/dl Phosphorus 2.0 L (2.7-4.5) mg/dL Albumin 2.9 L (3.2-5.2) gm/dL Pituitary panel 12/02/18 Range/Units 03:30 Sodium 142 (133-145) mmol/L Potassium 2.6 L* (3.3-5.1) mmol/L Chloride 105 (96-108) mmol/L Carbon Dioxide 29 (22-30) mmol/L BUN 8 (6-20) mg/dl Creatinine 0.3 L (0.6-1.1) mg/dl Glucose 147 H (70-105) mg/dL Calcium 8.5 L (8.6-10.4) mg/dl Adrenal panel 12/02/18 Range/Units 03:30 Sodium 142 (133-145) mmol/L Potassium 2.6 L* (3.3-5.1) mmol/L Chloride 105 (96-108) mmol/L Carbon Dioxide 29 (22-30) mmol/L BUN 8 (6-20) mg/dl Creatinine 0.3 L (0.6-1.1) mg/dl Glucose 147 H (70-105) mg/dL Calcium 8.5 L (8.6-10.4) mg/dl Total Bilirubin 0.9 (0.0-1.0) mg/dL AST 10 (0-37) U/l ALT 8 (0-40) U/l Alkaline Phosphatase 112 (39-117) U/L Total Protein 6.4 (5.9-8.4) gm/dL Albumin 2.9 L (3.2-5.2) gm/dL Assessment and Plan (1) PEG tube malfunction Status: Acute Assessment and plan: Continue nasogastric tube suction Delayed PEG tube feedings Start amlodipine and enalapril for hypertension Discuss long-term plans with family members. Neither her brother or her sister have power of commercial attorney and neither wishes to make any decisions Current Visit: Yes (2) Cellulitis of left abdominal wall Status: Acute Assessment and plan: Clinically improved on present therapy Current Visit: Yes (3) History of stroke with residual deficit Status: Acute Current Visit: Yes (4) Contracture of muscle of lower extremity, bilateral Status: Acute Current Visit: Yes (5) Seizure disorder as sequela of cerebrovascular accident Status: Acute Current Visit: Yes (6) Hypoxemia Status: Acute Assessment and plan: Titrate BiPAP for maximum effect Nasogastric section Chest x-ray Current Visit: Yes - Time Spent With Patient Total time spent is greater than 50% in coordination of care (as documented) at patient's floor/unit and/or counseling patient:
[2018-12-02] MEDS: MIRTAZAPINE 15 MG TABLET PO SCH (21:50)
[2018-12-02] MEDS: ALPRAZolam 0.5 MG TABLET PO PRN (21:56)
[2018-12-03] MEDS: METOCLOPRAMIDE 10 MG/2 ML VIAL IV SCH ×4 (00:23→17:24)
[2018-12-03] MEDS: INSULIN LISPRO 1 UNIT/0.01 ML UNIT SQ SCH ×4 (00:24→17:28)
[2018-12-03] MEDS: IPRATROPIUM/ALBUTEROL 3 ML AMPUL.NEB NEB SCH ×6 (03:13→23:15)
[2018-12-03] MEDS: DEXTROSE 5%-1/2NS W/10MEQ KCL 1,000 ML IV SCH ×2 (03:18→19:58)
[2018-12-03] MEDS: ACETAMINOPHEN 1,000 MG/100 ML BOTTLE IV PRN ×2 (03:49→16:07)
[2018-12-03] MEDS: HYDROmorphone 2 MG/ML VIAL IV PRN ×3 (04:13→22:45)
[2018-12-03 05:35] LABS: Basophils # (Auto) 0 K/mcL (0.0-0.3); Basophils % (Auto) 0.2 % (0.0-2.0); Eosinophils # (Auto) 0 K/mcL (0.0-0.7); Eosinophils % (Auto) 0 % (0.0-7.0); Granulocytes % (Auto) 68.9 % (38.0-78.0); Lymphocytes # (Auto) 1.8 K/mcL (1.5-4.8); Lymphocytes % (Auto) 22.3 % (15.5-49.0); Mean Cell Volume 96.1 fL (80.0-100.0); Mean Corpuscular HGB Conc 33.1 g/dL (31.0-36.0); Monocytes # (Auto) 0.7 K/mcL (0.1-0.9); Monocytes % (Auto) 8.6 % (1.0-12.0); Platelet Count 160 K/mcL (140-440); RBC 3.02 M/mcL (4.00-5.20); Red Cell Distribution Width 13.4 % (11.5-14.5)
[2018-12-03 05:53] LABS: ALT/SGPT 11 U/l (0-40); Albumin 2.6 gm/dL (3.2-5.2); Albumin/Globulin Ratio 0.7 (1.0-2.3); Alkaline Phosphatase 115 U/L (39-117); Bilirubin,Direct 0.7 mg/dL (0.0-0.3); Blood Urea Nitrogen 7 mg/dl (6-20); Gamma Glutamyl Transpeptidase 107 U/L (5-36); Uric Acid 1.5 mg/dL (2.5-8.0)
[2018-12-03] MEDS: metroNIDAZOLE 500 MG/100 ML BAG IV SCH ×3 (05:57→21:20)
[2018-12-03] MEDS: 0.9 % SODIUM CHLORIDE 10 ML SYRINGE IV SCH ×3 (05:57→21:20)
[2018-12-03] MEDS: CEFEPIME 2 GM VIAL IV SCH ×3 (05:57→21:31)
--- NOTE | 2018-12-03 07:13 | Internal Med Progress Note ---
Medical - PN: Subj Patient information: Note initiated : 12/03/18 at 7:09 am Service Date, if different from initiated Date: [] Patient: Jose Alejandro Pino a 58 y/o F admitted on 11/29/18 for Peg tube fell out. Chief Complaint: [] Interval history: Ms. Pino is a 58 year old F with a history of CVA, craniotomy, TRACKMAN shunt ,dysphagia on PEG tube feeding ,seizure disorder, depression with anxiety who currently resides at the [facility]. Patient carries a history of significant dysphagia secondary to CVA and has a gastrostomy tube for nutrition and medications. She comes to [place] [facility] after she was directed for further evaluation in the setting of recent gastrostomy dislodgment which was replaced by a Perez's catheter. Subsequently it was noted that she had extensive discharge around the ostomy site surrounding the catheter. She subsequent developed extensive excoriation of the skin along the left flank and abdomen due to leaking gastric fluids. Concern was raised about the possibility of malpositioning of Perez's catheter in the gastrostomy orifice. Initial workup included CT abdomen which did not show any acute peritonitis or intra-abdominal fluid collection. Surgery was consulted and admitted the patient for gastrostomy tube placement in a.m. Patient is currently n.p.o. Hospitalist service was consulted in light of complex medical history including CVA/seizure disorder on multiple medications. At the time of evaluation patient is nondistressed. She has an ostomy bag over gastrostomy site. Wound care team currently addressing cheryl-gastrostomy site sk in inflammation. Patient denies fever chills but endorses to pain around the ostomy site. Patient has significant expressive aphasia. She does not appear to be in distress and breathing comfortably. 11/29-patient doing well. No overnight events. Due for PEG tube placement today. IV Keppra for seizure prophylaxis load as patient unable to take per tube antiseizure medications. Continue IV Keppra until able to use PEG tube. No overnight fever or chills. No concerns per staff. Ongoing wound care around the gastrostomy site 11/30 did have a temp spike middle of night. Had procedure (PEG placed) yesterday. No otter overnight events. 12/01 Yesterday patient was on 3 of liters once a day and then at 3:00 oxygen saturation was down in the 80s placed on nonrebreather brought up in the 90s chest x-ray and ABG done with chest x-ray showing bilateral infiltrates. She is put on BiPAP and sent to the unit. Unable to corroborate weights and I's and O's and given elevated BNP concern for some component of volume overload patient was given a one-time dose of Lasix IV last night with 1630 out. No overnight events. Chest x-ray today looks more left lung involvement with some vascular congestion noted on the right as well. Doing well on BiPAP and titrating down oxygen. TPN starting. Pt nonverbal, unable to gather ROS. 12/02 Patient has episodes of sudden respiratory decompensation in her oxygenation status. It seems that she is aspirating on her secretions. She is having quite a bit of secretions that are thick and white/green. Respiratory therapist was able to suction out a lot of mucus this morning. CVP is 4-6. 12/03 No issues overnight. Stable on the BiPAP. Requiring higher pressures but FiO2 continues to come down. Pt nonverbal, unable to gather ROS. - Constitutional Vitals: Vital Signs Temp Pulse Resp BP Pulse Ox 101 F H 101 H 10 L 97/61 95 12/03/18 04:01 12/03/18 03:16 12/03/18 06:03 12/03/18 06:01 12/03/18 06:03 Period Temp Pulse Resp BP Sys/Honeycutt Pulse Ox Last 24 Hr 97.4 F-101.1 F 98-118 10-24 97-155/61-108 86-99 Intake and Output 12/02/18 12/03/18 12/03/18 21:59 05:59 13:59 Intake Total 55 100 Output Total 392 325 95 Balance 1577.5455 225 -95 Weight 67.132 kg Intake & Output: Intake & Output 12/02/18 12/03/18 12/03/18 21:59 05:59 13:59 Intake Total 55 100 Output Total 392 325 95 Balance 1577.5455 -225 -95 Weight 67.132 kg Intake: IV 100 Dextrose 5%-1/2Ns W/10Meq KCl 1 1000 ,000 ml @ 50 mls/hr IV .Q20H [facility] Rx#:[id number] Output: Urine Catheter Amount 392 325 95 Other: Urine Appearance Cloudy Clear Sediment Fem Cath Cloudy Sediment Urine Color Dark Graciela Dark Graciela Fem Cath Tea Colored Stool Size Moderate Stool Color Brown Stool Consistency Loose # Voids 1 # Bowel Movements 1 Exam: General: Awake, No acute Distress, nonverbal at baseline Eyes/N/T: EOMI, Head/Neck: neck supple, CV: RRR, No murmurs, Pulm: mild b/l rhonchi, better Abd: Drainage around PEG site, dressings in place, +Bs Ext: no clubbing/cyanosis/edema Neuro: Alert, right hemiparesis/contractures. does follow verbal commands, expressive aphasia Skin: warm/dry Medical - PN: Obj Da - Labs CBC & Chem 7: 12/03/18 04:00 12/03/18 04:00 Labs: Abnormal Lab Results 12/03/18 12/03/18 12/02/18 04:00 04:00 03:30 WBC 12.5 H RBC 3.02 L 3.19 L Hgb 9.6 L 10.1 L Hct 29.0 L 30.7 L Gran % 78.4 H Lymph % (Auto) 14.8 L Gran # 9.8 H Potassium Chloride Creatinine 0.2 L Glucose 140 H Uric Acid 1.5 L Calcium 8.3 L Phosphorus 1.5 L Total Bilirubin 1.3 H Direct Bilirubin 0.7 H GGT 107 H Alkaline Phosphatase NT-Pro-B Natriuret Pep Albumin 2.6 L Globulin Albumin/Globulin Ratio 0.7 L Prealbumin 12/02/18 12/01/18 12/01/18 03:30 11:48 03:22 WBC RBC Hgb Hct Gran % Lymph % (Auto) Gran # Potassium 2.6 L* Chloride Creatinine 0.3 L 0.4 L Glucose 147 H Uric Acid Calcium 8.5 L Phosphorus 2.0 L Total Bilirubin Direct Bilirubin 0.4 H GGT 124 H 123 H Alkaline Phosphatase 131 H NT-Pro-B Natriuret Pep 2394.0 H Albumin 2.9 L Globulin 3.9 H Albumin/Globulin Ratio 0.8 L 0.8 L Prealbumin 14.3 L 12/01/18 11/30/18 11/30/18 03:22 18:17 05:40 WBC 14.9 H RBC 3.30 L Hgb 10.9 L Hct 31.8 L Gran % Lymph % (Auto) Gran # Potassium Chloride 110 H Creatinine 0.4 L Glucose Uric Acid Calcium Phosphorus Total Bilirubin Direct Bilirubin GGT 59 H Alkaline Phosphatase NT-Pro-B Natriuret Pep 4060.0 H Albumin 3.0 L Globulin Albumin/Globulin Ratio 0.9 L Prealbumin 11/30/18 05:40 WBC RBC 3.34 L Hgb 10.7 L Hct 32.2 L Gran % Lymph % (Auto) Gran # Potassium Chloride Creatinine Glucose Uric Acid Calcium Phosphorus Total Bilirubin Direct Bilirubin GGT Alkaline Phosphatase NT-Pro-B Natriuret Pep Albumin Globulin Albumin/Globulin Ratio Prealbumin Meds: Medications Albuterol Sulfate (Ventolin) 2.5 mg NEB Q2HP PRN PRN Reason: Shortness Of Breath Albuterol/Ipratropium (Duoneb) 3 ml NEB Q4HRT [facility] Last Admin: 12/03/18 03:13 Dose: 3 ml Documented by: Albuterol/Ipratropium (Duoneb) 3 ml NEB Q6HP PRN PRN Reason: Shortness Of Breath Alprazolam (Xanax) 0.5 mg PO BIDP PRN PRN Reason: Anxiety Last Admin: 12/02/18 21:56 Dose: 0.5 mg Documented by: Carbamazepine (Tegretol) 200 mg PO DAILY@1100 [facility] Last Admin: 12/02/18 11:16 Dose: 200 mg Documented by: Carbamazepine (Tegretol) 400 mg PO DAILY@0730 [facility] Last Admin: 12/02/18 08:40 Dose: 400 mg Documented by: Carbamazepine (Tegretol) 300 mg PO DAILY@1630 [facility] Last Admin: 12/02/18 16:31 Dose: 300 mg Documented by: Cefepime HCl (Maxipime) 2 gm IV Q8H [facility] Last Admin: 12/03/18 05:57 Dose: 2 gm Documented by: Citalopram Hydrobromide (Celexa) 30 mg PO DAILY [facility] Last Admin: 12/02/18 08:27 Dose: 30 mg Documented by: Dextrose (Dextrose 50%) 50 ml IV UD PRN PRN Reason: Hypoglycemia Diagnostic Test (Pha) (Accu-Chek) 1 each FS Q6 [facility] Last Admin: 12/03/18 05:53 Dose: 1 each Documented by: Gabapentin (Neurontin) 900 mg PO TID [facility] Last Admin: 12/02/18 21:50 Dose: 900 mg Documented by: Glucose (Insta-Glucose) 31 gm PO UD PRN PRN Reason: Hypoglycemia Guaifenesin (Mucinex) 600 mg PO BIDP PRN PRN Reason: Congestion Hydromorphone HCl (Dilaudid) 1 mg IV Q2HP PRN PRN Reason: PAIN LEVEL > 6 Last Admin: 12/03/18 04:13 Dose: 1 mg Documented by: Potassium Chloride/Dextrose/Sod Cl (Dextrose 5%-1/2ns W/10meq Kcl) 1,000 mls @ 50 mls/hr IV .Q20H [facility] Last Admin: 12/03/18 03:18 Dose: Not Given Documented by: Levofloxacin (Levaquin) 750 mg in 150 mls @ 100 mls/hr IV Q24H [facility] Last Admin: 12/02/18 09:23 Dose: Not Given Documented by: Metronidazole (Flagyl) 500 mg in 100 mls @ 100 mls/hr IV Q8H [facility] Last Admin: 12/03/18 05:57 Dose: 250 mls/hr Documented by: Fat Emulsion Intravenous 250 (ml/ Premix) 250 mls @ 25 mls/hr IV Q24H [facility] Last Admin: 12/02/18 16:33 Dose: 25 mls/hr Documented by: Acetaminophen (Ofirmev) 1,000 mg in 100 mls @ 200 mls/hr IV Q6HP PRN PRN Reason: Fever Last Admin: 12/03/18 03:49 Dose: 200 mls/hr Documented by: Calcium Gluconate 5 meq/Magnesium Sulfate 8.12 meq/Sodium Chloride 20 meq/Potassium Chloride 40 meq/Potassium Phosphate 40 meq/Multivitamins/Minerals 10 ml/Selenium 60 mcg/ Amino Acids 1,058.3435 mls @ 20 mls/hr IV Q24H [facility] Last Admin: 12/02/18 15:04 Dose: 20 mls/hr Documented by: Insulin Human Lispro (Humalog) 0 unit SQ Q6 [facility]; Protocol Last Admin: 12/03/18 05:53 Dose: Not Given Documented by: Metoclopramide HCl (Reglan) 10 mg IV Q6 [facility] Last Admin: 12/03/18 05:57 Dose: 10 mg Documented by: Mirtazapine (Remeron) 15 mg PO HS [facility] Last Admin: 12/02/18 21:50 Dose: 15 mg Documented by: Mometasone Furoate (Nasonex) 2 spray EFREM DAILY [facility] Last Admin: 12/02/18 09:12 Dose: Not Given Documented by: Ondansetron HCl (Zofran) 4 mg IV Q6HP PRN PRN Reason: Nausea And Vomiting Pantoprazole Sodium (Protonix) 40 mg IV BIDAC [facility] Last Admin: 12/02/18 17:10 Dose: 40 mg Documented by: Phenobarbital (Phenobarbital) 64.8 mg PO BID [facility] Last Admin: 12/02/18 21:50 Dose: 64.8 mg Documented by: Scopolamine (Transderm-Scop) 1 patch TOPICAL Q72H [facility] Last Admin: 12/02/18 10:06 Dose: 1 patch Documented by: Sodium Chloride (Saline Flush) 10 ml IV Q8 [facility] Last Admin: 12/03/18 05:57 Dose: 10 ml Documented by: Medical - PN: A/P - Time Spent With Patient Total time spent is greater than 50% in coordination of care (as documented) at patient's floor/unit and/or counseling patient: - Narrative A/P Narrative: A: *Acute hypoxic resp failure: -2/ Aspiration Asp PNA -required bipap *Aspiration PNA: -leukocytosis resolved, febrile o/n *PEG tube malfunction: s/p surgical correction 11/29, per surgery *Abd wall cellulitis: per surgery *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 *anxiety/depression: continue home medications once G-tube placed. *Seizure d/o: now on IV Keppra until medications can be administered via G-tube. on carbamazepine/gabapentin/phenobarbital at outpatient. *asthma continue bronchodilators *Goal of care: respiratory status seems to wax/wane, no POA (father , sister trying to become POA) Plan: -cefepime/flagyl -wean off bipap if/when able -monitor i/o's -TPN -IV PPI to allow gastric acid suppression and minimize leakage -Wound care -IV Keppra medications as indicated. -Restart home meds Post G-tube placement when able -family discussions -ppx: SCD DNR Medical - PN: Qual - VTE Deep Vein Thrombosis/Pulmonary Embolism Present on Admission: No
[2018-12-03] MEDS: PANTOPRAZOLE 40 MG VIAL IV SCH ×2 (07:55→16:07)
[2018-12-03] MEDS: GABAPENTIN 300 MG CAPSULE PO SCH ×3 (07:56→21:20)
[2018-12-03] MEDS: CITALOPRAM 20 MG TABLET PO SCH (07:56)
[2018-12-03] MEDS: PHENobarbital 32.4 MG TABLET PO SCH ×2 (07:56→21:20)
[2018-12-03] MEDS: MOMETASONE NAS SPRAY 1 SPRAY BOTTLE NAS SCH (07:57)
[2018-12-03] MEDS ORDERED: POTASSIUM PHOSPHATE 40 MEQ in DEXTROSE 5% IN WATER 500 ML IV ONE (08:00)
[2018-12-03] MEDS: carBAMazepine 100 MG TAB.CHEW PO SCH ×3 (08:01→16:07)
[2018-12-03] MEDS: LEVOFLOXACIN 750 MG/150 ML BAG IV SCH (08:34)
[2018-12-03] MEDS ORDERED: CALCIUM GLUCONATE 5 MEQ, MAGNESIUM SULFATE 8.12 MEQ, SODIUM CHLORIDE 20 MEQ, POTASSIUM ... IV SCH (15:00)
[2018-12-03] MEDS: FAT EMULSION 20% 250 ML in PREMIX 1 BAG IV SCH (15:54)
--- NOTE | 2018-12-03 18:01 | General Surgery Progress Note ---
Subjective Narrative: Note initiated : 12/03/18 at 5:56 pm Service Date, if different from initiated Date: [] Patient: Jose Alejandro Pino 58 y/o F admitted on 11/29/18 for Peg tube fell out. Chief Complaint: [patient is about the same. She is not making progress in the past 24 hours.her respiratory status is about the same and chest x-ray shows bilateral increasing infiltrates compatible with probable aspiration pneumonitis. White blood count 8.2, hemoglobin 9.6, potassium 3.3, phosphorus 1.5. Ethics committee meeting was carried out today and it was decided that we are violating her advanced directive with regard to IV tube feeding as well as BiPAP treatment. Discussed the situation with her brother and sister and they will visit her tomorrow and on Sunday. After their meeting the plan is to make her comfort care at her wishes.] Objective Temp Pulse Resp BP Pulse Ox 100.0 F H 103 H 25 H 137/74 98 12/03/18 16:01 12/03/18 17:48 12/03/18 17:48 12/03/18 17:01 12/03/18 17:48 - Additional Data Intake & Output - Last 24 hours: Intake & Output 12/01/18 12/02/18 12/03/18 12/04/18 05:59 05:59 05:59 05:59 Intake Total 150 1790 2644.5455 1438.0909 Output Total 1633 452 914 679 Balance -1483 1338 1730.5455 759.0909 Weight 145 lb 144 lb 4.8 oz 148 lb - General physical appearance no distress, chronically ill - Eyes PERRL, normal ocular movement - Neck no venous distension - Respiratory other (bilateral coarse tubular breath sounds) - Cardiovascular Cardiovascular exam: Present: +S1, +S2, tachycardia. Absent: JVD - Abdomen distended ( mildly distended; large-volume gastric juices poured through gastrocutaneous fistula) - Labs 12/03/18 04:00 12/03/18 04:00 Diabetes panel 12/03/18 Range/Units 04:00 Sodium 140 (133-145) mmol/L Potassium 3.3 (3.3-5.1) mmol/L Chloride 105 (96-108) mmol/L Carbon Dioxide 27 (22-30) mmol/L BUN 7 (6-20) mg/dl Creatinine 0.2 L (0.6-1.1) mg/dl Glucose 140 H (70-105) mg/dL Calcium 8.3 L (8.6-10.4) mg/dl AST 17 (0-37) U/l ALT 11 (0-40) U/l Alkaline Phosphatase 115 (39-117) U/L Total Protein 6.1 (5.9-8.4) gm/dL Albumin 2.6 L (3.2-5.2) gm/dL Triglycerides 41 (<150) mg/dl Calcium panel 12/03/18 Range/Units 04:00 Calcium 8.3 L (8.6-10.4) mg/dl Phosphorus 1.5 L (2.7-4.5) mg/dL Albumin 2.6 L (3.2-5.2) gm/dL Pituitary panel 12/03/18 Range/Units 04:00 Sodium 140 (133-145) mmol/L Potassium 3.3 (3.3-5.1) mmol/L Chloride 105 (96-108) mmol/L Carbon Dioxide 27 (22-30) mmol/L BUN 7 (6-20) mg/dl Creatinine 0.2 L (0.6-1.1) mg/dl Glucose 140 H (70-105) mg/dL Calcium 8.3 L (8.6-10.4) mg/dl Adrenal panel 12/03/18 Range/Units 04:00 Sodium 140 (133-145) mmol/L Potassium 3.3 (3.3-5.1) mmol/L Chloride 105 (96-108) mmol/L Carbon Dioxide 27 (22-30) mmol/L BUN 7 (6-20) mg/dl Creatinine 0.2 L (0.6-1.1) mg/dl Glucose 140 H (70-105) mg/dL Calcium 8.3 L (8.6-10.4) mg/dl Total Bilirubin 1.3 H (0.0-1.0) mg/dL AST 17 (0-37) U/l ALT 11 (0-40) U/l Alkaline Phosphatase 115 (39-117) U/L Total Protein 6.1 (5.9-8.4) gm/dL Albumin 2.6 L (3.2-5.2) gm/dL Assessment and Plan (1) PEG tube malfunction Status: Acute Assessment and plan: Continue nasogastric tube suction Delayed PEG tube feedings Start amlodipine and enalapril for hypertension Continue present therapy until patient is evaluated by her sister and her brother. At this time she will be made comfort care unless they have strong objections. This is the decision of the ethics committee. Current Visit: Yes (2) Cellulitis of left abdominal wall Status: Acute Assessment and plan: Clinically improved on present therapy Current Visit: Yes (3) History of stroke with residual deficit Status: Acute Current Visit: Yes (4) Contracture of muscle of lower extremity, bilateral Status: Acute Current Visit: Yes (5) Seizure disorder as sequela of cerebrovascular accident Status: Acute Current Visit: Yes (6) Hypoxemia Status: Acute Assessment and plan: Titrate BiPAP for maximum effect Nasogastric section Chest x-ray Current Visit: Yes - Time Spent With Patient Total time spent is greater than 50% in coordination of care (as documented) at patient's floor/unit and/or counseling patient:
[2018-12-03] MEDS: MIRTAZAPINE 15 MG TABLET PO SCH (21:20)
[2018-12-03] MEDS: ALPRAZolam 0.5 MG TABLET PO PRN (21:21)
[2018-12-04] MEDS: INSULIN LISPRO 1 UNIT/0.01 ML UNIT SQ SCH ×4 (00:22→17:54)
[2018-12-04] MEDS: METOCLOPRAMIDE 10 MG/2 ML VIAL IV SCH ×4 (00:27→17:57)
[2018-12-04] MEDS: DEXTROSE 5%-1/2NS W/10MEQ KCL 1,000 ML IV SCH ×3 (00:28→21:26)
[2018-12-04] MEDS: HYDROmorphone 2 MG/ML VIAL IV PRN ×5 (01:28→22:14)
[2018-12-04] MEDS: ACETAMINOPHEN 1,000 MG/100 ML BOTTLE IV PRN ×3 (01:29→20:21)
[2018-12-04] MEDS: IPRATROPIUM/ALBUTEROL 3 ML AMPUL.NEB NEB SCH ×6 (02:53→23:30)
[2018-12-04] MEDS: CEFEPIME 2 GM VIAL IV SCH ×3 (05:29→21:13)
[2018-12-04] MEDS: metroNIDAZOLE 500 MG/100 ML BAG IV SCH ×3 (05:30→20:59)
[2018-12-04] MEDS: 0.9 % SODIUM CHLORIDE 10 ML SYRINGE IV SCH ×3 (05:30→21:00)
--- NOTE | 2018-12-04 06:52 | Internal Med Progress Note ---
Medical - PN: Subj Patient information: Note initiated : 12/04/18 at 6:50 am Service Date, if different from initiated Date: [] Patient: Jose Alejandro Pino a 58 y/o F admitted on 11/29/18 for Peg tube fell out. Chief Complaint: [] Interval history: Ms. Pino is a 58 year old F with a history of CVA, craniotomy, TOILE[employer] MOLDER shunt ,dysphagia on PEG tube feeding ,seizure disorder, depression with anxiety who currently resides at [facility]. Patient carries a history of significant dysphagia secondary to CVA and has a gastrostomy tube for nutrition and medications. She comes to [place] [facility] after she was directed for further evaluation in the setting of recent gastrostomy dislodgment which was replaced by a Perez's catheter. Subsequently it was noted that she had extensive discharge around the ostomy site surrounding the catheter. She subsequent developed extensive excoriation of the skin along the left flank and abdomen due to leaking gastric fluids. Concern was raised about the possibility of malpositioning of Perez's catheter in the gastrostomy orifice. Initial workup included CT abdomen which did not show any acute peritonitis or intra-abdominal fluid collection. Surgery was consulted and admitted the patient for gastrostomy tube placement in a.m. Patient is currently n.p.o. Hospitalist service was consulted in light of complex medical history including CVA/seizure disorder on multiple medications. At the time of evaluation patient is nondistressed. She has an ostomy bag over gastrostomy site. Wound care team currently addressing cheryl-gastrostomy site sk in inflammation. Patient denies fever chills but endorses to pain around the ostomy site. Patient has significant expressive aphasia. She does not appear to be in distress and breathing comfortably. 11/29-patient doing well. No overnight events. Due for PEG tube placement today. IV Keppra for seizure prophylaxis load as patient unable to take per tube antiseizure medications. Continue IV Keppra until able to use PEG tube. No overnight fever or chills. No concerns per staff. Ongoing wound care around the gastrostomy site 11/30 did have a temp spike middle of night. Had procedure (PEG placed) yesterday. No otter overnight events. 12/01 Yesterday patient was on 3 of liters once a day and then at 3:00 oxygen saturation was down in the 80s placed on nonrebreather brought up in the 90s chest x-ray and ABG done with chest x-ray showing bilateral infiltrates. She is put on BiPAP and sent to the unit. Unable to corroborate weights and I's and O's and given elevated BNP concern for some component of volume overload patient was given a one-time dose of Lasix IV last night with 1630 out. No overnight events. Chest x-ray today looks more left lung involvement with some vascular congestion noted on the right as well. Doing well on BiPAP and titrating down oxygen. TPN starting. Pt nonverbal, unable to gather ROS. 12/02 Patient has episodes of sudden respiratory decompensation in her oxygenation status. It seems that she is aspirating on her secretions. She is having quite a bit of secretions that are thick and white/green. Respiratory therapist was able to suction out a lot of mucus this morning. CVP is 4-6. 12/03 No issues overnight. Stable on the BiPAP. Requiring higher pressures but FiO2 continues to come down. Pt nonverbal, unable to gather ROS. 12/04 Stable on BiPAP overnight. No other acute concerns. Discussion with regarding goals of care and advanced directives currently being undertaken. Pt nonverbal, unable to gather ROS. - Constitutional Vitals: Vital Signs Temp Pulse Resp BP Pulse Ox 98.7 F 106 H 20 124/67 93 12/04/18 05:01 12/04/18 05:16 12/04/18 06:01 12/04/18 06:01 12/04/18 06:01 Period Temp Pulse Resp BP Sys/Honeycutt Pulse Ox Last 24 Hr 98.5 F-101 F 88-116 11-28 102-151/57-88 91-99 Intake and Output 12/03/18 12/04/18 12/04/18 21:59 05:59 13:59 Intake Total 1679 100 Output Total 530 760 95 Balance 1149 -660 -95 Weight 68.583 kg Intake & Output: Intake & Output 12/03/18 12/04/18 12/04/18 21:59 05:59 13:59 Intake Total 1679 100 Output Total 530 760 95 Balance 1149 -660 -95 Weight 68.583 kg Intake: IV 1679 100 Calcium Gluconate 5 Meq 479 Magnesium Sulfate 8.12 Meq Sodium Chloride 20 Meq Potassium Chloride 40 Meq Potassium Phosphate 40 Meq Infuvite Adult 10 ml Selenium 60 Mcg In Clinimix 5%-20% Solution 1,000 ml @ 20 mls/hr IV Q24H [facility] Rx#:[id number] Dextrose 5%-1/2Ns W/10Meq KCl 1 1000 ,000 ml @ 50 mls/hr IV .Q20H [facility] Rx#:[id number] Output: Urine Catheter Amount 530 760 Void Amount 95 Other: Urine Appearance Clear Clear Fem Cath Clear Clear Urine Color Light Graciela Pale Fem Cath Pale Pale Urine Odor Normal Stool Size Moderate Stool Color Brown Stool Consistency Liquid # of times incontinent of 1 Bowels Exam: General: Awake, No acute Distress, nonverbal at baseline Eyes/N/T: EOMI, Head/Neck: neck supple, CV: RRR, No murmurs, Pulm: mild b/l rhonchi right side, better Abd: Drainage around PEG site, dressings in place, +Bs Ext: no clubbing/cyanosis/edema Neuro: Alert, right hemiparesis/contractures. does follow verbal commands, expressive aphasia Skin: warm/dry Medical - PN: Obj Da - Labs CBC & Chem 7: 12/04/18 08:20 12/04/18 08:20 Labs: Abnormal Lab Results 12/04/18 12/03/18 12/03/18 04:00 04:00 04:00 WBC RBC 3.02 L Hgb 9.6 L Hct 29.0 L Gran % Lymph % (Auto) Gran # Potassium Creatinine 0.2 L Glucose 140 H Uric Acid 1.5 L Calcium 8.3 L Phosphorus 1.5 L Total Bilirubin 1.3 H Direct Bilirubin 0.7 H GGT 107 H NT-Pro-B Natriuret Pep Albumin 2.6 L Albumin/Globulin Ratio 0.7 L Prealbumin 6.7 L 12/02/18 12/02/18 12/01/18 03:30 03:30 11:48 WBC 12.5 H RBC 3.19 L Hgb 10.1 L Hct 30.7 L Gran % 78.4 H Lymph % (Auto) 14.8 L Gran # 9.8 H Potassium 2.6 L* Creatinine 0.3 L Glucose 147 H Uric Acid Calcium 8.5 L Phosphorus 2.0 L Total Bilirubin Direct Bilirubin 0.4 H GGT 124 H NT-Pro-B Natriuret Pep 2394.0 H Albumin 2.9 L Albumin/Globulin Ratio 0.8 L Prealbumin 14.3 L Meds: Medications Albuterol Sulfate (Ventolin) 2.5 mg NEB Q2HP PRN PRN Reason: Shortness Of Breath Albuterol/Ipratropium (Duoneb) 3 ml NEB Q4HRT [facility] Last Admin: 12/04/18 02:53 Dose: 3 ml Documented by: Albuterol/Ipratropium (Duoneb) 3 ml NEB Q6HP PRN PRN Reason: Shortness Of Breath Alprazolam (Xanax) 0.5 mg PO BIDP PRN PRN Reason: Anxiety Last Admin: 12/03/18 21:21 Dose: 0.5 mg Documented by: Carbamazepine (Tegretol) 200 mg PO DAILY@1100 [facility] Last Admin: 12/03/18 11:49 Dose: 200 mg Documented by: Carbamazepine (Tegretol) 400 mg PO DAILY@0730 [facility] Last Admin: 12/03/18 08:01 Dose: 400 mg Documented by: Carbamazepine (Tegretol) 300 mg PO DAILY@1630 [facility] Last Admin: 12/03/18 16:07 Dose: 300 mg Documented by: Cefepime HCl (Maxipime) 2 gm IV Q8H [facility] Last Admin: 12/04/18 05:29 Dose: 2 gm Documented by: Citalopram Hydrobromide (Celexa) 30 mg PO DAILY [facility] Last Admin: 12/03/18 07:56 Dose: 30 mg Documented by: Dextrose (Dextrose 50%) 50 ml IV UD PRN PRN Reason: Hypoglycemia Diagnostic Test (Pha) (Accu-Chek) 1 each FS Q6 [facility] Last Admin: 12/04/18 05:30 Dose: 1 each Documented by: Gabapentin (Neurontin) 900 mg PO TID [facility] Last Admin: 12/03/18 21:20 Dose: 900 mg Documented by: Glucose (Insta-Glucose) 31 gm PO UD PRN PRN Reason: Hypoglycemia Guaifenesin (Mucinex) 600 mg PO BIDP PRN PRN Reason: Congestion Hydromorphone HCl (Dilaudid) 1 mg IV Q2HP PRN PRN Reason: PAIN LEVEL > 6 Last Admin: 12/04/18 01:28 Dose: 1 mg Documented by: Potassium Chloride/Dextrose/Sod Cl (Dextrose 5%-1/2ns W/10meq Kcl) 1,000 mls @ 50 mls/hr IV .Q20H [facility] Last Admin: 12/04/18 00:28 Dose: Not Given Documented by: Levofloxacin (Levaquin) 750 mg in 150 mls @ 100 mls/hr IV Q24H [facility] Last Infusion: 12/03/18 10:15 Dose: Infused Documented by: Metronidazole (Flagyl) 500 mg in 100 mls @ 100 mls/hr IV Q8H [facility] Last Admin: 12/04/18 05:30 Dose: 100 mls/hr Documented by: Fat Emulsion Intravenous 250 (ml/ Premix) 250 mls @ 25 mls/hr IV Q24H [facility] Last Admin: 12/03/18 15:54 Dose: 25 mls/hr Documented by: Acetaminophen (Ofirmev) 1,000 mg in 100 mls @ 200 mls/hr IV Q6HP PRN PRN Reason: Fever Last Admin: 12/04/18 01:29 Dose: 200 mls/hr Documented by: Calcium Gluconate 5 meq/Magnesium Sulfate 8.12 meq/Sodium Chloride 20 meq/Potassium Chloride 40 meq/Potassium Phosphate 40 meq/Multivitamins/Minerals 10 ml/Selenium 60 mcg/ Amino Acids 1,058.3435 mls @ 40 mls/hr IV Q24H [facility] Last Admin: 12/03/18 15:00 Dose: 40 mls/hr Documented by: Insulin Human Lispro (Humalog) 0 unit SQ Q6 [facility]; Protocol Last Admin: 12/04/18 05:30 Dose: Not Given Documented by: Metoclopramide HCl (Reglan) 10 mg IV Q6 [facility] Last Admin: 12/04/18 05:30 Dose: 10 mg Documented by: Mirtazapine (Remeron) 15 mg PO HS [facility] Last Admin: 12/03/18 21:20 Dose: 15 mg Documented by: Mometasone Furoate (Nasonex) 2 spray EFREM DAILY [facility] Last Admin: 12/03/18 07:57 Dose: Not Given Documented by: Ondansetron HCl (Zofran) 4 mg IV Q6HP PRN PRN Reason: Nausea And Vomiting Pantoprazole Sodium (Protonix) 40 mg IV BIDAC [facility] Last Admin: 12/03/18 16:07 Dose: 40 mg Documented by: Phenobarbital (Phenobarbital) 64.8 mg PO BID [facility] Last Admin: 12/03/18 21:20 Dose: 64.8 mg Documented by: Scopolamine (Transderm-Scop) 1 patch TOPICAL Q72H [facility] Last Admin: 12/02/18 10:06 Dose: 1 patch Documented by: Sodium Chloride (Saline Flush) 10 ml IV Q8 [facility] Last Admin: 12/04/18 05:30 Dose: 10 ml Documented by: Medical - PN: A/P - Time Spent With Patient Total time spent is greater than 50% in coordination of care (as documented) at patient's floor/unit and/or counseling patient: - Narrative A/P Narrative: A: *Acute hypoxic resp failure: -2 Aspiration Asp PNA -required bipap *Aspiration PNA: -leukocytosis resolved, febrile o/n *PEG tube malfunction: s/p surgical correction 11/29, per surgery *Abd wall cellulitis: per surgery *h/o CVA w/Right hemiparesis status post TOILE[employer] MOLDER shunt/temporal lobectomy and craniotomy: patient at baseline with expressive aphasia. *anxiety/depression: continue home medications once G-tube placed. *Seizure d/o: now on IV Keppra until medications can be administered via G-tube. on carbamazepine/gabapentin/phenobarbital at outpatient. *asthma continue bronchodilators *Goal of care: respiratory status seems to wax/wane, no POA (father , sister trying to become POA) *Malnutrition: Plan: -cefepime/flagyl -wean off bipap if/when able -monitor i/o's -TPN -IV PPI to allow gastric acid suppression and minimize leakage -Wound care -IV Keppra medications as indicated. -Restart home meds Post G-tube placement when able -family/facility discussions, directing towards comfort care -ppx: SCD DNR Medical - PN: Qual - VTE Deep Vein Thrombosis/Pulmonary Embolism Present on Admission: No
[2018-12-04] MEDS: LEVOFLOXACIN 750 MG/150 ML BAG IV SCH (09:00)
[2018-12-04 09:14] LABS: Basophils # (Auto) 0 K/mcL (0.0-0.3); Basophils % (Auto) 0.2 % (0.0-2.0); Eosinophils # (Auto) 0 K/mcL (0.0-0.7); Eosinophils % (Auto) 0 % (0.0-7.0); Granulocytes % (Auto) 64.7 % (38.0-78.0); Lymphocytes # (Auto) 2.2 K/mcL (1.5-4.8); Lymphocytes % (Auto) 25.2 % (15.5-49.0); Mean Cell Volume 97.1 fL (80.0-100.0); Mean Corpuscular HGB Conc 32.7 g/dL (31.0-36.0); Monocytes # (Auto) 0.8 K/mcL (0.1-0.9); Monocytes % (Auto) 9.9 % (1.0-12.0); Platelet Count 179 K/mcL (140-440); RBC 2.91 M/mcL (4.00-5.20); Red Cell Distribution Width 13.1 % (11.5-14.5)
[2018-12-04] MEDS: MOMETASONE NAS SPRAY 1 SPRAY BOTTLE NAS SCH (09:26)
[2018-12-04] MEDS: PANTOPRAZOLE 40 MG VIAL IV SCH ×2 (09:31→17:57)
[2018-12-04] MEDS: carBAMazepine 100 MG TAB.CHEW PO SCH ×3 (09:31→17:57)
[2018-12-04] MEDS: ALPRAZolam 0.5 MG TABLET PO PRN ×2 (09:31→20:49)
[2018-12-04] MEDS: GABAPENTIN 300 MG CAPSULE PO SCH ×3 (09:32→20:49)
[2018-12-04] MEDS: PHENobarbital 32.4 MG TABLET PO SCH ×2 (09:32→20:49)
[2018-12-04] MEDS: guaiFENesin 600 MG TAB.SR.12H PO PRN ×2 (09:32→20:50)
[2018-12-04] MEDS: CITALOPRAM 20 MG TABLET PO SCH (09:32)
[2018-12-04 09:33] LABS: ALT/SGPT 11 U/l (0-40); Albumin 2.5 gm/dL (3.2-5.2); Albumin/Globulin Ratio 0.8 (1.0-2.3); Alkaline Phosphatase 94 U/L (39-117); Bilirubin,Direct 0.4 mg/dL (0.0-0.3); Blood Urea Nitrogen 6 mg/dl (6-20); Gamma Glutamyl Transpeptidase 92 U/L (5-36)
[2018-12-04] MEDS ORDERED: CALCIUM GLUCONATE 5 MEQ, MAGNESIUM SULFATE 8.12 MEQ, SODIUM CHLORIDE 20 MEQ, POTASSIUM ... IV SCH (15:00)
[2018-12-04] MEDS: FAT EMULSION 20% 250 ML in PREMIX 1 BAG IV SCH (15:29)
--- NOTE | 2018-12-04 15:29 | General Surgery Progress Note ---
Subjective Patient reports: shortness of breath, fever Narrative: Note initiated : 12/04/18 at 3:26 pm Service Date, if different from initiated Date: [] Patient: Jose Alejandro Pino 58 y/o F admitted on 11/29/18 for Peg tube fell out. Chief Complaint: [No change in status. She was febrile to 102 this morning. This was treated with IV acetaminophen. She still has labored respirations and her O2 sats 90-92% on BiPAP at 45% and without. She is noncommunicative. Drainage via her gastro-cutaneous fistula is the same. White count 8.6; hemoglobin 9.2] Objective Temp Pulse Resp BP Pulse Ox 98.4 F 105 H 22 138/78 92 12/04/18 12:01 12/04/18 15:19 12/04/18 15:19 12/04/18 15:01 12/04/18 15:19 - Additional Data Intake & Output - Last 24 hours: Intake & Output 12/02/18 12/03/18 12/04/18 12/05/18 05:59 05:59 05:59 05:59 Intake Total 1790 2644.5455 2888.0909 1409.9985 Output Total 644 238 6465 635 Balance 1338 1730.5455 1149.0909 774.9985 Weight 144 lb 4.8 oz 148 lb 151 lb 3.2 oz - General physical appearance moderate distress, chronically ill - Eyes PERRL, normal ocular movement - ENT normal pinna, normal nares, normal mucosa, no hearing loss, no congestion - Neck no masses, no bruits, trachea midline, no lymphadenopathy, no venous distension - Respiratory other (coarse tubular breath sounds bilaterally) - Cardiovascular Cardiovascular exam: Present: +S1, +S2, tachycardia. Absent: JVD - Abdomen tender (tenderness around fistula due to denuded skin) - Integumentary no rash, no growths, no abnormal pigmentation - Labs 12/04/18 08:20 12/04/18 08:20 Diabetes panel 12/04/18 Range/Units 08:20 Sodium 140 (133-145) mmol/L Potassium 3.5 (3.3-5.1) mmol/L Chloride 104 (96-108) mmol/L Carbon Dioxide 27 (22-30) mmol/L BUN 6 (6-20) mg/dl Creatinine 0.3 L (0.6-1.1) mg/dl Glucose 111 H (70-105) mg/dL Calcium 8.1 L (8.6-10.4) mg/dl AST 14 (0-37) U/l ALT 11 (0-40) U/l Alkaline Phosphatase 94 (39-117) U/L Total Protein 5.8 L (5.9-8.4) gm/dL Albumin 2.5 L (3.2-5.2) gm/dL Triglycerides 43 (<150) mg/dl Calcium panel 12/04/18 Range/Units 08:20 Calcium 8.1 L (8.6-10.4) mg/dl Phosphorus 2.1 L (2.7-4.5) mg/dL Albumin 2.5 L (3.2-5.2) gm/dL Pituitary panel 12/04/18 Range/Units 08:20 Sodium 140 (133-145) mmol/L Potassium 3.5 (3.3-5.1) mmol/L Chloride 104 (96-108) mmol/L Carbon Dioxide 27 (22-30) mmol/L BUN 6 (6-20) mg/dl Creatinine 0.3 L (0.6-1.1) mg/dl Glucose 111 H (70-105) mg/dL Calcium 8.1 L (8.6-10.4) mg/dl Adrenal panel 12/04/18 Range/Units 08:20 Sodium 140 (133-145) mmol/L Potassium 3.5 (3.3-5.1) mmol/L Chloride 104 (96-108) mmol/L Carbon Dioxide 27 (22-30) mmol/L BUN 6 (6-20) mg/dl Creatinine 0.3 L (0.6-1.1) mg/dl Glucose 111 H (70-105) mg/dL Calcium 8.1 L (8.6-10.4) mg/dl Total Bilirubin 0.9 (0.0-1.0) mg/dL AST 14 (0-37) U/l ALT 11 (0-40) U/l Alkaline Phosphatase 94 (39-117) U/L Total Protein 5.8 L (5.9-8.4) gm/dL Albumin 2.5 L (3.2-5.2) gm/dL Assessment and Plan (1) PEG tube malfunction Status: Acute Assessment and plan: Continue nasogastric tube suction Delayed PEG tube feedings Start amlodipine and enalapril for hypertension Continue present therapy until patient is evaluated by her sister and her bro ther. At this time she will be made comfort care unless they have strong objections. This is the decision of the ethics committee. Current Visit: Yes (2) Cellulitis of left abdominal wall Status: Acute Assessment and plan: Clinically improved on present therapy Current Visit: Yes (3) History of stroke with residual deficit Status: Acute Current Visit: Yes (4) Contracture of muscle of lower extremity, bilateral Status: Acute Current Visit: Yes (5) Seizure disorder as sequela of cerebrovascular accident Status: Acute Current Visit: Yes (6) Hypoxemia Status: Acute Assessment and plan: Titrate BiPAP for maximum effect Nasogastric section Chest x-ray Current Visit: Yes - Time Spent With Patient Total time spent is greater than 50% in coordination of care (as documented) at patient's floor/unit and/or counseling patient:
[2018-12-04] MEDS: MIRTAZAPINE 15 MG TABLET PO SCH (20:48)
[2018-12-04] MEDS ORDERED: hydrOXYzine 25 MG TABLET PO ONE (22:23)
[2018-12-05] MEDS: METOCLOPRAMIDE 10 MG/2 ML VIAL IV SCH ×4 (00:35→17:22)
[2018-12-05] MEDS: INSULIN LISPRO 1 UNIT/0.01 ML UNIT SQ SCH ×4 (00:42→17:36)
[2018-12-05] MEDS: HYDROmorphone 2 MG/ML VIAL IV PRN ×5 (02:31→17:22)
[2018-12-05] MEDS: ACETAMINOPHEN 1,000 MG/100 ML BOTTLE IV PRN ×2 (02:35→12:52)
[2018-12-05] MEDS: IPRATROPIUM/ALBUTEROL 3 ML AMPUL.NEB NEB SCH ×5 (02:56→18:20)
[2018-12-05] MEDS: metroNIDAZOLE 500 MG/100 ML BAG IV SCH ×2 (06:01→13:53)
[2018-12-05] MEDS: CEFEPIME 2 GM VIAL IV SCH ×2 (06:02→13:56)
[2018-12-05] MEDS: 0.9 % SODIUM CHLORIDE 10 ML SYRINGE IV SCH ×4 (06:02→22:05)
--- NOTE | 2018-12-05 07:13 | Internal Med Progress Note ---
Medical - PN: Subj Patient information: Note initiated : 12/05/18 at 7:12 am Service Date, if different from initiated Date: [] Patient: Jose Alejandro Pino a 58 y/o F admitted on 11/29/18 for Peg tube fell out. Chief Complaint: [] Interval history: Ms. Pino is a 58 year old F with a history of CVA, craniotomy, ELECTRIC RAZOR MECHANIC shunt ,dysphagia on PEG tube feeding ,seizure disorder, depression with anxiety who currently resides at the [facility]. Patient carries a history of significant dysphagia secondary to CVA and has a gastrostomy tube for nutrition and medications. She comes to [facility] after she was directed for further evaluation in the setting of recent gastrostomy dislodgment which was replaced by a Perez's catheter. Subsequently it was noted that she had extensive discharge around the ostomy site surrounding the catheter. She subsequent developed extensive excoriation of the skin along the left flank and abdomen due to leaking gastric fluids. Concern was raised about the possibility of malpositioning of Perez's catheter in the gastrostomy orifice. Initial workup included CT abdomen which did not show any acute peritonitis or intra-abdominal fluid collection. Surgery was consulted and admitted the patient for gastrostomy tube placement in a.m. Patient is currently n.p.o. Hospitalist service was consulted in light of complex medical history including CVA/seizure disorder on multiple medications. At the time of evaluation patient is nondistressed. She has an ostomy bag over gastrostomy site. Wound care team currently addressing cheryl-gastrostomy site sk in inflammation. Patient denies fever chills but endorses to pain around the ostomy site. Patient has significant expressive aphasia. She does not appear to be in distress and breathing comfortably. 11/29-patient doing well. No overnight events. Due for PEG tube placement today. IV Keppra for seizure prophylaxis load as patient unable to take per tube antiseizure medications. Continue IV Keppra until able to use PEG tube. No overnight fever or chills. No concerns per staff. Ongoing wound care around the gastrostomy site 11/30 did have a temp spike middle of night. Had procedure (PEG placed) yesterday. No otter overnight events. 12/01 Yesterday patient was on 3 of liters once a day and then at 3:00 oxygen saturation was down in the 80s placed on nonrebreather brought up in the 90s chest x-ray and ABG done with chest x-ray showing bilateral infiltrates. She is put on BiPAP and sent to the unit. Unable to corroborate weights and I's and O's and given elevated BNP concern for some component of volume overload patient was given a one-time dose of Lasix IV last night with 1630 out. No overnight events. Chest x-ray today looks more left lung involvement with some vascular congestion noted on the right as well. Doing well on BiPAP and titrating down oxygen. TPN starting. Pt nonverbal, unable to gather ROS. 12/02 Patient has episodes of sudden respiratory decompensation in her oxygenation status. It seems that she is aspirating on her secretions. She is having quite a bit of secretions that are thick and white/green. Respiratory therapist was able to suction out a lot of mucus this morning. CVP is 4-6. 12/03 No issues overnight. Stable on the BiPAP. Requiring higher pressures but FiO2 continues to come down. Pt nonverbal, unable to gather ROS. 12/04 Stable on BiPAP overnight. No other acute concerns. Discussion with regarding goals of care and advanced directives currently being undertaken. Pt nonverbal, unable to gather ROS. 12/05 Continues on BiPAP. Gets agitated at times and tries to pull off. Family discussion expected today for goals of care talk. - Constitutional Vitals: Vital Signs Temp Pulse Resp BP Pulse Ox 99.0 F 118 H 15 108/68 95 12/05/18 06:00 12/04/18 23:30 12/05/18 06:00 12/05/18 06:00 12/05/18 06:57 Period Temp Pulse Resp BP Sys/Honeycutt Pulse Ox Last 24 Hr 98.2 F-102.1 F 102-118 14-27 102-139/63-91 87-97 Intake and Output 12/04/18 12/05/18 12/05/18 21:59 05:59 13:59 Intake Total 2339.9985 565 Output Total 515 555 260 Balance 1824.9985 10 -260 Weight 68.583 kg Intake & Output: Intake & Output 12/04/18 12/05/18 12/05/18 21:59 05:59 13:59 Intake Total 2339.9985 565 Output Total 515 555 260 Balance 1824.9985 10 -260 Weight 68.583 kg Intake: IV 2159.9985 450 Calcium Gluconate 5 Meq 959.9985 Magnesium Sulfate 8.12 Meq Sodium Chloride 20 Meq Potassium Chloride 40 Meq Potassium Phosphate 40 Meq Infuvite Adult 10 ml Selenium 60 Mcg In Clinimix 5%-20% Solution 1,000 ml @ 40 mls/hr IV Q24H [facility] Rx#:[id number] Dextrose 5%-1/2Ns W/10Meq KCl 1 1000 ,000 ml @ 50 mls/hr IV .Q20H [facility] Rx#:[id number] Intralipid 20% 250 ml In Premix 250 1 Bag @ 25 mls/hr IV Q24H [facility] Rx#:[id number] GI Tube Flush 180 115 Output: Gastric Drainage 150 75 Right Nare 150 75 Urine Catheter Amount 365 480 260 Other: Urine Appearance Clear Clear Clear Sediment Fem Cath Clear Uretheral (Perez) Clear Urine Color Light Graciela Light Graciela Dark Graciela Fem Cath Light Graciela Uretheral (Perez) Light Graciela Urine Odor Normal Stool Size Moderate Smear Stool Color Brown Brown Stool Consistency Liquid Liquid # of times incontinent of 1 Bowels Exam: General: Awake, No acute Distress, nonverbal at baseline Eyes/N/T: EOMI, Head/Neck: neck supple, CV: RRR, No murmurs, Pulm: b/l rhonchi, Abd: PEG in place, dressings in place, decrease BS Ext: no clubbing/cyanosis/edema Neuro: Alert, right hemiparesis/contractures. expressive aphasia Skin: warm/dry Medical - PN: Obj Da - Labs CBC & Chem 7: 12/05/18 07:10 12/05/18 07:10 Labs: Abnormal Lab Results 12/05/18 12/04/18 12/04/18 04:00 08:20 08:20 RBC 2.91 L Hgb 9.2 L Hct 28.2 L Creatinine 0.3 L Glucose 111 H Uric Acid 1.0 L Calcium 8.1 L Phosphorus 2.1 L Total Bilirubin Direct Bilirubin 0.4 H GGT 92 H Total Protein 5.8 L Albumin 2.5 L Albumin/Globulin Ratio 0.8 L Prealbumin 7.0 L 12/04/18 12/03/18 12/03/18 04:00 04:00 04:00 RBC 3.02 L Hgb 9.6 L Hct 29.0 L Creatinine 0.2 L Glucose 140 H Uric Acid 1.5 L Calcium 8.3 L Phosphorus 1.5 L Total Bilirubin 1.3 H Direct Bilirubin 0.7 H GGT 107 H Total Protein Albumin 2.6 L Albumin/Globulin Ratio 0.7 L Prealbumin 6.7 L Meds: Medications Albuterol Sulfate (Ventolin) 2.5 mg NEB Q2HP PRN PRN Reason: Shortness Of Breath Albuterol/Ipratropium (Duoneb) 3 ml NEB Q4HRT [facility] Last Admin: 12/05/18 07:08 Dose: 3 ml Documented by: Albuterol/Ipratropium (Duoneb) 3 ml NEB Q6HP PRN PRN Reason: Shortness Of Breath Alprazolam (Xanax) 0.5 mg PO BIDP PRN PRN Reason: Anxiety Last Admin: 12/04/18 20:49 Dose: 0.5 mg Documented by: Carbamazepine (Tegretol) 200 mg PO DAILY@1100 [facility] Last Admin: 12/04/18 12:29 Dose: 200 mg Documented by: Carbamazepine (Tegretol) 400 mg PO DAILY@0730 [facility] Last Admin: 12/04/18 09:31 Dose: 400 mg Documented by: Carbamazepine (Tegretol) 300 mg PO DAILY@1630 [facility] Last Admin: 12/04/18 17:57 Dose: 300 mg Documented by: Cefepime HCl (Maxipime) 2 gm IV Q8H [facility] Last Admin: 12/05/18 06:02 Dose: 2 gm Documented by: Citalopram Hydrobromide (Celexa) 30 mg PO DAILY [facility] Last Admin: 12/04/18 09:32 Dose: 30 mg Documented by: Dextrose (Dextrose 50%) 50 ml IV UD PRN PRN Reason: Hypoglycemia Diagnostic Test (Pha) (Accu-Chek) 1 each FS Q6 [facility] Last Admin: 12/05/18 06:09 Dose: 1 each Documented by: Gabapentin (Neurontin) 900 mg PO TID [facility] Last Admin: 12/04/18 20:49 Dose: 900 mg Documented by: Glucose (Insta-Glucose) 31 gm PO UD PRN PRN Reason: Hypoglycemia Guaifenesin (Mucinex) 600 mg PO BIDP PRN PRN Reason: Congestion Last Admin: 12/04/18 20:50 Dose: 600 mg Documented by: Hydromorphone HCl (Dilaudid) 1 mg IV Q2HP PRN PRN Reason: PAIN LEVEL > 6 Last Admin: 12/05/18 02:31 Dose: 1 mg Documented by: Potassium Chloride/Dextrose/Sod Cl (Dextrose 5%-1/2ns W/10meq Kcl) 1,000 mls @ 50 mls/hr IV .Q20H [facility] Last Admin: 12/04/18 21:26 Dose: Not Given Documented by: Levofloxacin (Levaquin) 750 mg in 150 mls @ 100 mls/hr IV Q24H [facility] Last Infusion: 12/04/18 10:30 Dose: Infused Documented by: Metronidazole (Flagyl) 500 mg in 100 mls @ 100 mls/hr IV Q8H [facility] Last Admin: 12/05/18 06:01 Dose: 100 mls/hr Documented by: Fat Emulsion Intravenous 250 (ml/ Premix) 250 mls @ 25 mls/hr IV Q24H [facility] Last Infusion: 12/05/18 03:47 Dose: Infused Documented by: Acetaminophen (Ofirmev) 1,000 mg in 100 mls @ 200 mls/hr IV Q6HP PRN PRN Reason: Fever Last Infusion: 12/05/18 03:51 Dose: Infused Documented by: Calcium Gluconate 5 meq/Magnesium Sulfate 8.12 meq/Sodium Chloride 20 meq/Potassium Chloride 40 meq/Potassium Phosphate 60 meq/Multivitamins/Minerals 10 ml/Selenium 60 mcg/ Amino Acids 1,062.889 mls @ 40 mls/hr IV Q24H [facility] Last Admin: 12/04/18 15:29 Dose: 40 mls/hr Documented by: Insulin Human Lispro (Humalog) 0 unit SQ Q6 [facility]; Protocol Last Admin: 12/05/18 06:09 Dose: Not Given Documented by: Metoclopramide HCl (Reglan) 10 mg IV Q6 [facility] Last Admin: 12/05/18 06:02 Dose: 10 mg Documented by: Mirtazapine (Remeron) 15 mg PO HS [facility] Last Admin: 12/04/18 20:48 Dose: 15 mg Documented by: Mometasone Furoate (Nasonex) 2 spray EFREM DAILY [facility] Last Admin: 12/04/18 09:26 Dose: Not Given Documented by: Ondansetron HCl (Zofran) 4 mg IV Q6HP PRN PRN Reason: Nausea And Vomiting Pantoprazole Sodium (Protonix) 40 mg IV BIDAC [facility] Last Admin: 12/04/18 17:57 Dose: 40 mg Documented by: Phenobarbital (Phenobarbital) 64.8 mg PO BID [facility] Last Admin: 12/04/18 20:49 Dose: 64.8 mg Documented by: Scopolamine (Transderm-Scop) 1 patch TOPICAL Q72H [facility] Last Admin: 12/02/18 10:06 Dose: 1 patch Documented by: Sodium Chloride (Saline Flush) 10 ml IV Q8 [facility] Last Admin: 12/05/18 06:02 Dose: 10 ml Documented by: Medical - PN: A/P - Time Spent With Patient Total time spent is greater than 50% in coordination of care (as documented) at patient's floor/unit and/or counseling patient: - Narrative A/P Narrative: A: *Acute hypoxic resp failure: -2/2 Aspiration Asp PNA -required bipap *Aspiration PNA: -leukocytosis resolved, febrile o/n *PEG tube malfunction: s/p surgical correction 11/29, per surgery *Abd wall cellulitis: per surgery *h/o CVA w/Right hemiparesis status post ELECTRIC RAZOR MECHANIC shunt/temporal lobectomy and c raniotomy: patient at baseline with expressive aphasia. *anxiety/depression: continue home medications once G-tube placed. *Seizure d/o: now on IV Keppra until medications can be administered via G-tube. on carbamazepine/gabapentin/phenobarbital at outpatient. *asthma continue bronchodilators *Goal of care: respiratory status seems to wax/wane, no POA (father , sister trying to become POA) *Malnutrition: Plan: -cefepime/flagyl -wean off bipap if/when able -monitor i/o's -TPN -IV PPI to allow gastric acid suppression and minimize leakage -Wound care -IV Keppra medications as indicated. -Restart home meds Post G-tube placement when able -family/facility discussions, directing towards comfort care; awaiting family decision -ppx: SCD DNR Medical - PN: Qual - VTE Deep Vein Thrombosis/Pulmonary Embolism Present on Admission: No
[2018-12-05] MEDS: PANTOPRAZOLE 40 MG VIAL IV SCH ×2 (07:25→17:21)
[2018-12-05 08:01] LABS: Basophils # (Auto) 0 K/mcL (0.0-0.3); Basophils % (Auto) 0.3 % (0.0-2.0); Eosinophils # (Auto) 0 K/mcL (0.0-0.7); Eosinophils % (Auto) 0 % (0.0-7.0); Granulocytes % (Auto) 55.6 % (38.0-78.0); Lymphocytes # (Auto) 2.2 K/mcL (1.5-4.8); Lymphocytes % (Auto) 31.1 % (15.5-49.0); Mean Cell Volume 96.5 fL (80.0-100.0); Mean Corpuscular HGB Conc 32.9 g/dL (31.0-36.0); Monocytes # (Auto) 0.9 K/mcL (0.1-0.9); Platelet Count 199 K/mcL (140-440); RBC 2.86 M/mcL (4.00-5.20); Red Cell Distribution Width 12.9 % (11.5-14.5)
[2018-12-05] MEDS: carBAMazepine 100 MG TAB.CHEW PO SCH ×3 (08:14→17:34)
[2018-12-05] MEDS: guaiFENesin 600 MG TAB.SR.12H PO PRN (08:18)
[2018-12-05] MEDS: GABAPENTIN 300 MG CAPSULE PO SCH ×2 (08:18→15:42)
[2018-12-05] MEDS: ALPRAZolam 0.5 MG TABLET PO PRN (08:18)
[2018-12-05] MEDS: CITALOPRAM 20 MG TABLET PO SCH (08:18)
[2018-12-05] MEDS: PHENobarbital 32.4 MG TABLET PO SCH (08:18)
[2018-12-05] MEDS: MOMETASONE NAS SPRAY 1 SPRAY BOTTLE NAS SCH (08:19)
[2018-12-05 08:20] LABS: ALT/SGPT 12 U/l (0-40); Albumin 2.5 gm/dL (3.2-5.2); Albumin/Globulin Ratio 0.7 (1.0-2.3); Alkaline Phosphatase 98 U/L (39-117); Bilirubin,Direct 0.3 mg/dL (0.0-0.3); Blood Urea Nitrogen 7 mg/dl (6-20); Gamma Glutamyl Transpeptidase 84 U/L (5-36)
[2018-12-05] MEDS: LEVOFLOXACIN 750 MG/150 ML BAG IV SCH (08:23)
[2018-12-05] MEDS: SCOPOLAMINE 1 PATCH PATCH TOPICAL SCH (08:26)
[2018-12-05] MEDS ORDERED: CALCIUM GLUCONATE 5 MEQ, MAGNESIUM SULFATE 8.12 MEQ, SODIUM CHLORIDE 20 MEQ, POTASSIUM ... IV SCH (15:00)
[2018-12-05] MEDS: FAT EMULSION 20% 250 ML in PREMIX 1 BAG IV SCH (15:40)
[2018-12-05] MEDS ORDERED: ALTEPLASE 2 MG VIAL IV ONE (15:44)
[2018-12-05] MEDS: DEXTROSE 5%-1/2NS W/10MEQ KCL 1,000 ML IV SCH (17:12)
--- NOTE | 2018-12-05 17:37 | General Surgery Progress Note ---
Subjective Patient reports: other (no acute changes noted. Waiting for family to have final meeting. Hopefully this will be done tomorrow. No changes in treatment instituted at this time. Patient has not made any progress.) Narrative: Note initiated : 12/05/18 at 5:35 pm Service Date, if different from initiated Date: [] Patient: Jose Alejandro Pino 58 y/o F admitted on 11/29/18 for Peg tube fell out. Chief Complaint: [] Objective Temp Pulse Resp BP Pulse Ox 99.0 F 91 H 14 117/67 94 12/05/18 16:01 12/05/18 15:10 12/05/18 16:01 12/05/18 16:01 12/05/18 16:01 - Additional Data Intake & Output - Last 24 hours: Intake & Output 12/03/18 12/04/18 12/05/18 12/06/18 05:59 05:59 05:59 05:59 Intake Total 2644.5455 2888.0909 3254.9985 2417 Output Total 914 1739 1705 615 Balance 1730.5455 1149.0909 1549.9985 1802 Weight 148 lb 151 lb 3.2 oz 151 lb 3.2 oz 151 lb 3.2 oz - Labs 12/05/18 07:10 12/05/18 07:10 Diabetes panel 12/05/18 Range/Units 07:10 Sodium 138 (133-145) mmol/L Potassium 3.9 (3.3-5.1) mmol/L Chloride 105 (96-108) mmol/L Carbon Dioxide 26 (22-30) mmol/L BUN 7 (6-20) mg/dl Creatinine 0.2 L (0.6-1.1) mg/dl Glucose 120 H (70-105) mg/dL Calcium 8.2 L (8.6-10.4) mg/dl AST 17 (0-37) U/l ALT 12 (0-40) U/l Alkaline Phosphatase 98 (39-117) U/L Total Protein 6.0 (5.9-8.4) gm/dL Albumin 2.5 L (3.2-5.2) gm/dL Triglycerides 50 (<150) mg/dl Calcium panel 12/05/18 Range/Units 07:10 Calcium 8.2 L (8.6-10.4) mg/dl Phosphorus 2.8 (2.7-4.5) mg/dL Albumin 2.5 L (3.2-5.2) gm/dL Pituitary panel 12/05/18 Range/Units 07:10 Sodium 138 (133-145) mmol/L Potassium 3.9 (3.3-5.1) mmol/L Chloride 105 (96-108) mmol/L Carbon Dioxide 26 (22-30) mmol/L BUN 7 (6-20) mg/dl Creatinine 0.2 L (0.6-1.1) mg/dl Glucose 120 H (70-105) mg/dL Calcium 8.2 L (8.6-10.4) mg/dl Adrenal panel 12/05/18 Range/Units 07:10 Sodium 138 (133-145) mmol/L Potassium 3.9 (3.3-5.1) mmol/L Chloride 105 (96-108) mmol/L Carbon Dioxide 26 (22-30) mmol/L BUN 7 (6-20) mg/dl Creatinine 0.2 L (0.6-1.1) mg/dl Glucose 120 H (70-105) mg/dL Calcium 8.2 L (8.6-10.4) mg/dl Total Bilirubin 0.7 (0.0-1.0) mg/dL AST 17 (0-37) U/l ALT 12 (0-40) U/l Alkaline Phosphatase 98 (39-117) U/L Total Protein 6.0 (5.9-8.4) gm/dL Albumin 2.5 L (3.2-5.2) gm/dL Assessment and Plan (1) PEG tube malfunction Status: Acute Assessment and plan: Continue nasogastric tube suction Delayed PEG tube feedings Start amlodipine and enalapril for hypertension Continue present therapy until patient is evaluated by her sister and her brother. At this time she will be made comfort care unless they have strong objections. This is the decision of the ethics committee. Current Visit: Yes (2) Cellulitis of left abdominal wall Status: Acute Assessment and plan: Clinically improved on present therapy Current Visit: Yes (3) History of stroke with residual deficit Status: Acute Current Visit: Yes (4) Contracture of muscle of lower extremity, bilateral Status: Acute Current Visit: Yes (5) Seizure disorder as sequela of cerebrovascular accident Status: Acute Current Visit: Yes (6) Hypoxemia Status: Acute Assessment and plan: Titrate BiPAP for maximum effect Nasogastric section Chest x-ray Current Visit: Yes - Time Spent With Patient Total time spent is greater than 50% in coordination of care (as documented) at patient's floor/unit and/or counseling patient:
[2018-12-05] MEDS ORDERED: LORazepam 2 MG/ML VIAL IV PRN (19:58)
[2018-12-05] MEDS ORDERED: ONDANSETRON 4 MG/2 ML VIAL IV PRN ×3 (19:58→21:35)
[2018-12-05] MEDS ORDERED: LACTOPEROXI/GLUC OXID/POT THIO 1 EACH GEL..EA. TOPICAL PRN ×2 (19:58→21:35)
[2018-12-05] MEDS ORDERED: ACETAMINOPHEN 1,000 MG/100 ML BOTTLE IV PRN (21:35)
[2018-12-05] MEDS ORDERED: IPRATROPIUM/ALBUTEROL 3 ML AMPUL.NEB NEB PRN (21:35)
[2018-12-05] MEDS ORDERED: ALBUTEROL SULFATE 2.5 MG/3 ML NEBULIZER NEB PRN (21:35)
[2018-12-05] MEDS ORDERED: 0.9 % SODIUM CHLORIDE 10 ML SYRINGE IV SCH (22:00)
[2018-12-06] MEDS: 0.9 % SODIUM CHLORIDE 10 ML SYRINGE IV SCH ×7 (05:48→14:23)
[2018-12-06] MEDS: LORazepam 2 MG/ML VIAL IV PRN ×3 (08:04→14:21)
[2018-12-06] MEDS ORDERED: fentaNYL 50 MCG PATCH TOPICAL SCH (08:30)
--- NOTE | 2018-12-06 12:02 | Internal Med Progress Note ---
Medical - PN: Subj Patient information: Note initiated : 12/06/18 at 11:59 am Service Date, if different from initiated Date: [] Patient: Jose Alejandro Pino a 58 y/o F admitted on 11/29/18 for Peg tube fell out. Chief Complaint: [] Interval history: Ms. 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 Patient carries a history of significant dysphagia secondary to CVA and has a gastrostomy tube for nutrition and medications. She comes to [facility] ER after she was directed for further evaluation in the setting of recent gastrostomy dislodgment which was replaced by a Perez's catheter. Subsequently it was noted that she had extensive discharge around the ostomy site surrounding the catheter. She subsequent developed extensive excoriation of the skin along the left flank and abdomen due to leaking gastric fluids. Concern was raised about the possibility of malpositioning of Perez's catheter in the gastrostomy orifice. Initial workup included CT abdomen which did not show any acute peritonitis or intra-abdominal fluid collection. Surgery was consulted and admitted the patient for gastrostomy tube placement in a.m. Patient is currently n.p.o. Hospitalist service was consulted in light of complex medical history including CVA/seizure disorder on multiple medications. At the time of evaluation patient is nondistressed. She has an ostomy bag over gastrostomy site. Wound care team currently addressing cheryl-gastrostomy site s kin inflammation. Patient denies fever chills but endorses to pain around the ostomy site. Patient has significant expressive aphasia. She does not appear to be in distress and breathing comfortably. 11/29-patient doing well. No overnight events. Due for PEG tube placement today. IV Keppra for seizure prophylaxis load as patient unable to take per tube antiseizure medications. Continue IV Keppra until able to use PEG tube. No overnight fever or chills. No concerns per staff. Ongoing wound care around the gastrostomy site 11/30 did have a temp spike middle of night. Had procedure (PEG placed) yesterday. No otter overnight events. 12/01 Yesterday patient was on 3 of liters once a day and then at 3:00 oxygen saturation was down in the 80s placed on nonrebreather brought up in the 90s chest x-ray and ABG done with chest x-ray showing bilateral infiltrates. She is put on BiPAP and sent to the unit. Unable to corroborate weights and I's and O's and given elevated BNP concern for some component of volume overload patient was given a one-time dose of Lasix IV last night with 1630 out. No overnight events. Chest x-ray today looks more left lung involvement with some vascular congestion noted on the right as well. Doing well on BiPAP and titrating down oxygen. TPN starting. Pt nonverbal, unable to gather ROS. 12/02 Patient has episodes of sudden respiratory decompensation in her oxygenation status. It seems that she is aspirating on her secretions. She is having quite a bit of secretions that are thick and white/green. Respiratory therapist was able to suction out a lot of mucus this morning. CVP is 4-6. 12/03 No issues overnight. Stable on the BiPAP. Requiring higher pressures but FiO2 continues to come down. Pt nonverbal, unable to gather ROS. 12/04 Stable on BiPAP overnight. No other acute concerns. Discussion with regarding goals of care and advanced directives currently being undertaken. Pt nonverbal, unable to gather ROS. 12/05 Continues on BiPAP. Gets agitated at times and tries to pull off. Family discussion expected today for goals of care talk. 12/06 Pt seen examined overnight family came by and decided that patient should be comfort care bipap discontinued. non essential meds and labs stopped pt on comfort measures plan to d/c to SNF for comfort measure Pertinent ROS: unable. - Constitutional Vitals: Vital Signs Temp Pulse Resp BP Pulse Ox 97.3 F 101 H 24 H 133/74 86 L 12/06/18 06:57 12/05/18 18:38 12/06/18 06:57 12/05/18 21:01 12/06/18 07:00 Period Temp Pulse Resp BP Sys/Honeycutt Pulse Ox Last 24 Hr 97.3 F-99.8 F 91-104 10-24 101-133/61-103 81-98 Intake and Output 12/05/18 12/06/18 12/06/18 21:59 05:59 13:59 Intake Total 2067 253 941 Output Total 405 450 Balance 1662 -197 941 Weight 151 lb 3.2 oz Intake & Output: Intake & Output 12/05/18 12/06/18 12/06/18 21:59 05:59 13:59 Intake Total 2066 253 941 Output Total 405 450 Balance 1662 -197 941 Weight 151 lb 3.2 oz Intake: IV 2066 253 941 Calcium Gluconate 5 Meq 967 Magnesium Sulfate 8.12 Meq Sodium Chloride 20 Meq Potassium Chloride 40 Meq Potassium Phosphate 60 Meq Infuvite Adult 10 ml Selenium 60 Mcg In Clinimix 5%-20% Solution 1,000 ml @ 40 mls/hr IV Q24H [facility] Rx#:[id number] Dextrose 5%-1/2Ns W/10Meq KCl 1 1000 ,000 ml @ 50 mls/hr IV .Q20H [facility] Rx#:[id number] Output: Urine Catheter Amount 405 450 Other: Urine Appearance Clear Uretheral (Perez) Clear Urine Color Dark Graciela Uretheral (Perez) Dark Yellow Urine Odor Normal Stool Size Smear Stool Color Brown Stool Consistency Liquid Exam: Constitutional; Afebrile,alert, not in distress. Respiratory system: Air Entry equal on both sides, no stridor, noted, does have insipiratory upper airway crackles. CVS- Rate rhythm regular, S1,S2 heard, no gallop, no rub. KILN [employer]ADER- AOOx1, Medical - PN: Obj Da - Labs CBC & Chem 7: 12/05/18 07:10 12/05/18 07:10 Labs: Abnormal Lab Results 12/05/18 12/05/18 12/05/18 07:10 07:10 04:00 RBC 2.86 L Hgb 9.1 L Hct 27.6 L Lee % (Auto) 13.0 H Anion Gap 7.0 L Creatinine 0.2 L Glucose 120 H Uric Acid 1.0 L Calcium 8.2 L Phosphorus Direct Bilirubin GGT 84 H Total Protein Albumin 2.5 L Albumin/Globulin Ratio 0.7 L Prealbumin 7.0 L 12/04/18 12/04/18 12/04/18 08:20 08:20 04:00 RBC 2.91 L Hgb 9.2 L Hct 28.2 L Lee % (Auto) Anion Gap Creatinine 0.3 L Glucose 111 H Uric Acid 1.0 L Calcium 8.1 L Phosphorus 2.1 L Direct Bilirubin 0.4 H GGT 92 H Total Protein 5.8 L Albumin 2.5 L Albumin/Globulin Ratio 0.8 L Prealbumin 6.7 L Meds: Medications Albuterol Sulfate (Ventolin) 2.5 mg NEB Q2HP PRN PRN Reason: Shortness Of Breath Albuterol/Ipratropium (Duoneb) 3 ml NEB Q6HP PRN PRN Reason: Shortness Of Breath Fentanyl (Duragesic) 50 mcg TOPICAL Q72H [facility] Last Admin: 12/06/18 10:18 Dose: 50 mcg Documented by: Glucose Oxid/Lactoperoxid/Muramidas (Biotene) 1 each TOPICAL PRN PRN PRN Reason: Dry Mouth Acetaminophen (Ofirmev) 1,000 mg in 100 mls @ 200 mls/hr IV Q6HP PRN PRN Reason: Fever Lorazepam (Ativan) 0 mg IV Q1HP PRN; Protocol PRN Reason: ANXIETY/SEDATION Last Admin: 12/06/18 08:04 Dose: 2 mg Documented by: Morphine Sulfate (Morphine) 0 mg IV Q1HP PRN PRN Reason: Pain Last Admin: 12/06/18 10:17 Dose: 4 mg Documented by: Morphine Sulfate (Morphine) 4 mg NEB Q4HP PRN PRN Reason: Shortness Of Breath Ondansetron HCl (Zofran) 4 mg IV Q6HP PRN PRN Reason: Nausea And Vomiting Ondansetron HCl (Zofran) 4 mg IV Q4HP PRN PRN Reason: Nausea And Vomiting Scopolamine (Transderm-Scop) 1 patch TOPICAL Q72H [facility] Sodium Chloride (Saline Flush) 10 ml IV Q8 [facility] Last Admin: 12/06/18 10:18 Dose: 10 ml Documented by: Sodium Chloride (Saline Flush) 10 ml IV Q8 [facility] Last Admin: 12/06/18 05:48 Dose: 10 ml Documented by: Medical - PN: A/P - Time Spent With Patient Total time spent is greater than 50% in coordination of care (as documented) at patient's floor/unit and/or counseling patient: - Narrative A/P Narrative: A: *Acute hypoxic resp failure: -2/2 Aspiration Asp PNA -required bipap *Aspiration PNA: -leukocytosis resolved, febrile o/n *PEG tube malfunction: s/p surgical correction 11/29, per surgery *Abd wall cellulitis: per surgery *h/o CVA w/Right hemiparesis status post POWER PL[employer] TECHNICIAN shunt/temporal lobectomy and craniotomy: patient at baseline with expressive aphasia. *anxiety/depression: continue home medications once G-tube placed. *Seizure d/o: now on IV Keppra until medications can be administered via G-tube. on carbamazepine/gabapentin/phenobarbital at outpatient. *asthma continue bronchodilators *Goal of care: respiratory status seems to wax/wane, no POA (father , sister trying to become POA) *Malnutrition: Plan: off ABX/non essential meds on morphine/fentanyl/ativan for comfort measures DNR/ Comfort care Medical - PN: Qual - VTE Deep Vein Thrombosis/Pulmonary Embolism Present on Admission: No
--- NOTE | 2018-12-06 13:29 | Discharge Summary ---
Medical - DS: Prov Patient information: Note initiated : 12/06/18 at 1:21 pm Service Date, if different from initiated Date: [] Patient: Jose Alejandro Pino 58 y/o F admitted on 11/29/18 for Peg tube fell out. Chief Complaint: [] Date of admission: 11/29/18 14:02 Discharge date: 12/06/18 Primary care physician: Olga Artis Admitting clinician: Camila Lala Consults: 11/28/18 Consult to Physician [CONS] Stat Comment: Consulting Provider: Camila Lala Reason For Exam: Physician to Consult 11/28/18 12:57 Consult to Physician [CONS] Routine Comment: medical consult Consulting Provider: Jesus Alberto Webb Reason For Exam: Physician to Consult Discharging clinician: Ruby Hernandez Medical - DS: Meds - Discharge Medications Prescriptions: fentaNYL [Duragesic] 50 mcg TOPICAL Q72H #7 patch LORazepam [Ativan] 2 mg IV Q1HP PRN #60 vial PRN Reason: Anxiety/Sedation LORazepam [Lorazepam Intensol] 2 mg SL Q2HP PRN #60 ml PRN Reason: anxiety/ comfort care morphine SULFATE [Morphine Sulfate] 5 - 20 mg SL Q2HP PRN #100 ml PRN Reason: pain/anxiety/comfort morphine SULFATE/0.9% NACL/PF [Morphine 4 mg/ml-0.9% NaCl Syr] 4 - 8 mg IV Q2HP PRN #120 syringe PRN Reason: pain/comfort Active and Home Medications: Home Medications ALPRAZolam [Xanax] 0.5 mg PO BIDP PRN 09/13/18 [History Confirmed 11/28/18 Last Taken 11/27/18 19:00 0.5 mg.] Acetaminophen [Tylenol] 500 mg PO QHS 09/13/18 [History Confirmed 11/28/18 Last Taken 11/27/18 21:00 500 mg.] Albuterol Sulfate [Ventolin] 2.5 mg NEB Q2HP PRN 09/13/18 [History Confirmed 11/28/18 Last Taken Unknown] Bisacodyl [Correctol] 5 mg PO DAILYP PRN 09/13/18 [History Confirmed 11/28/18 Last Taken Unknown] Bisacodyl [Laxative Suppository] 10 mg RC PRN PRN 09/13/18 [History Confirmed 11/28/18 Last Taken Unknown] Cholecalciferol (Vitamin D3) [Vitamin D3] 2,000 unit PO DAILY 09/13/18 [History Confirmed 11/28/18 Last Taken 11/28/18 08:00 2000 units] Citalopram Hydrobromide [Citalopram HBr] 30 mg PO DAILY 09/13/18 [History Confirmed 11/28/18 Last Taken 11/28/18 08:00 30 mg.] Cranberry 425 mg PO BID 09/13/18 [History Confirmed 11/28/18 Last Taken 11/28/18 08:00 425 mg.] Docusate Sodium [Colace] 100 mg PO BID 09/13/18 [History Confirmed 11/28/18 Last Taken 11/28/18 08:00 100 mg.] Folic Acid 1 mg PO DAILY 09/13/18 [History Confirmed 11/28/18 Last Taken 11/28/18 08:00 1 mg.] HYDROcodone/APAP 5/325MG [[place] 5-325Mg] 1 tab PO Q8H PRN 09/13/18 [History Confirmed 11/28/18 Last Taken 11/24/18 15:40 1 tab] Ipratropium/Albuterol [Duoneb] 3 ml NEB Q6HP PRN 09/13/18 [History Confirmed 11/28/18 Last Taken Unknown] Loratadine [Loradamed] 10 mg PO DAILY 09/13/18 [History Confirmed 11/28/18 Last Taken 11/28/18 08:00 10 mg.] Magnesium Hydroxide [Milk of Magnesia] 400 mg PO PRN PRN 09/13/18 [History Confirmed 11/28/18 Last Taken 11/25/18 07:00 15 ml.] Melatonin 10 mg PO QHS 09/13/18 [History Confirmed 11/28/18 Last Taken 11/27/18 21:00 10 mg.] Mirtazapine [Remeron] 1.5 tab PO HS 09/13/18 [History Confirmed 11/28/18 Last Taken 11/27/18 21:00 1.5 mg.] Mometasone E[place]rem [place] [Nasonex] 2 spray EFREM DAILY 09/13/18 [History Confirmed 11/28/18 Last Taken 11/28/18 08:00 1 spray] Multivitamin [One Daily] 1 each PO DAILY 09/13/18 [History Confirmed 11/28/18 Last Taken 11/28/18 08:00 1 tab] PHENobarbital [Phenobarbital] 64.8 mg PO BID 09/13/18 [History Confirmed 11/28/18 Last Taken 11/28/18 08:00 64.5mg.] Polyethylene Glycol 3350 [Miralax] 17 gm PO QHS 09/13/18 [History Confirmed 11/28/18 Last Taken 11/28/18 08:00 17 gm] carBAMazepine [Tegretol] 200 mg PO DAILY@1100 09/13/18 [History Confirmed 12/01/18 Last Taken 11/27/18 15:00] carBAMazepine [Tegretol] 300 mg PO DAILY@1630 09/13/18 [History Confirmed 12/01/18 Last Taken 11/27/18 21:00 300 mg.] carBAMazepine [Tegretol] 400 mg PO DAILY@0730 09/13/18 [History Confirmed 12/01/18 Last Taken 11/28/18 08:00 400 mg.] guaiFENesin [Guaifenesin] 400 mg PO Q12HP PRN 09/13/18 [History Confirmed 11/28/18 Last Taken 09/12/18 20:00] Doxycycline Hyclate [Morgidox] 100 mg PO BID 10 Days #20 cap 11/27/18 [Rx Confirmed 11/28/18 Last Taken 11/28/18 08:00 100 mg.] Gabapentin [Neurontin] 900 mg PO TID 11/28/18 [History Confirmed 11/28/18 Last Taken 11/28/18 08:00 900 mg.] Loratadine 10 mg FLUSH DAILY 11/28/18 [History Confirmed 11/28/18 Last Taken Unknown] Medical - DS: Hosp Hospital course: Ms. Pino is a 58 year old F with a history of CVA, craniotomy, LATCHER shunt ,dysphagia on PEG tube feeding ,seizure disorder, depression with anxiety who currently resides at the [facility]. Patient carries a history of significant dysphagia secondary to CVA and has a gastrostomy tube for nutrition and medications. [facility] after she was directed for further evaluation in the setting of recent gastrostomy dislodgment which was replaced by a Perez's catheter. Subsequently it was noted that she had extensive discharge around the ostomy site surrounding the catheter. She subsequent developed extensive excoriation of the skin along the left flank and abdomen due to leaking gastric fluids. Concern was raised about the possibility of malpositioning of Perez's catheter in the gastrostomy orifice. Initial workup included CT abdomen which did not show any acute peritonitis or intra-abdominal fluid collection. Surgery was consulted and admitted the patient for gastrostomy tube placement in a.m. Patient is currently n.p.o. Hospitalist service was consulted in light of complex medical history including CVA/seizure disorder on multiple medications. At the time of evaluation patient is nond istressed. She has an ostomy bag over gastrostomy site. Wound care team currently addressing cheryl-gastrostomy site skin inflammation. Patient denies fever chills but endorses to pain around the ostomy site. Patient has significant expressive aphasia. She does not appear to be in distress and breathing comfortably. 11/29-patient doing well. No overnight events. Due for PEG tube placement today. IV Keppra for seizure prophylaxis load as patient unable to take per tube antiseizure medications. Continue IV Keppra until able to use PEG tube. No overnight fever or chills. No concerns per staff. Ongoing wound care around the gastrostomy site 11/30 did have a temp spike middle of night. Had procedure (PEG placed) yesterday. No otter overnight events. 12/01 Yesterday patient was on 3 of liters once a day and then at 3:00 oxygen saturation was down in the 80s placed on nonrebreather brought up in the 90s chest x-ray and ABG done with chest x-ray showing bilateral infiltrates. She is put on BiPAP and sent to the unit. Unable to corroborate weights and I's and O's and given elevated BNP concern for some component of volume overload patient was given a one-time dose of Lasix IV last night with 1630 out. No overnight events. Chest x-ray today looks more left lung involvement with some vascular congestion noted on the right as well. Doing well on BiPAP and titrating down oxygen. TPN starting. Pt nonverbal, unable to gather ROS. 12/02 Patient has episodes of sudden respiratory decompensation in her oxygenation status. It seems that she is aspirating on her secretions. She is having quite a bit of secretions that are thick and white/green. Respiratory therapist was able to suction out a lot of mucus this morning. CVP is 4-6. 12/03 No issues overnight. Stable on the BiPAP. Requiring higher pressures but FiO2 continues to come down. Pt nonverbal, unable to gather ROS. 12/04 Stable on BiPAP overnight. No other acute concerns. Discussion with regarding goals of care and advanced directives currently being undertaken. Pt nonverbal, unable to gather ROS. 12/05 Continues on BiPAP. Gets agitated at times and tries to pull off. Family discussion expected today for goals of care talk. 12/06 Pt seen examined overnight family came by and decided that patient should be comfort care bipap discontinued. non essential meds and labs stopped pt on comfort measures to d/c to SNF for comfort measure In Summary *Acute hypoxic resp failure: -was on bipap, but later transitioned to comfort care at the wish of family and patient. *Aspiration PNA: off abx now. 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 *Seizure disorder -to be managed by ativan. Patient is being discharged back to the facility at the request of the family. Pain management is via Morphine/fentanyl and ativan IV and Sublingual(if pt looses IV access of SNF is unable to provide IV medications) . Pt has a central line and Perez in place. Discharge diagnosis: Pneumonia/ gastrocutaneous fistula, Respiratory failure - Time Spent with Patient Total time spent providing and/or coordinating discharge services: Greater than 30 minutes Medical - DS: Exam - Constitutional Vitals: Vital Signs Temp Pulse Resp BP Pulse Ox 12/06/18 08:20 89 L 12/06/18 07:00 86 L 12/06/18 06:57 97.3 F 24 H 81 L 12/06/18 01:26 85 L 12/05/18 21:01 17 133/74 89 L 12/05/18 20:01 16 116/75 90 12/05/18 20:00 17 89 L 12/05/18 19:01 18 125/103 96 12/05/18 18:38 101 H 19 12/05/18 18:36 104 H 15 93 12/05/18 18:01 99.8 F H 16 130/67 89 L 12/05/18 17:01 13 116/69 98 12/05/18 16:01 99.0 F 14 117/67 94 12/05/18 15:10 91 H 11 L 12/05/18 15:08 96 H 12 96 12/05/18 15:01 12 101/63 97 12/05/18 14:01 10 L 104/64 96 12/05/18 14:00 11 L 92 Intake and Output 12/05/18 12/06/18 12/06/18 21:59 05:59 13:59 Intake Total 2066 253 941 Output Total 405 450 Balance 1662 -197 941 Intake: IV 2066 253 941 Calcium Gluconate 5 Meq 967 Magnesium Sulfate 8.12 Meq Sodium Chloride 20 Meq Potassium Chloride 40 Meq Potassium Phosphate 60 Meq Infuvite Adult 10 ml Selenium 60 Mcg In Clinimix 5%-20% Solution 1,000 ml @ 40 mls/hr IV Q24H [facility] Rx#:[id number] Dextrose 5%-1/2Ns W/10Meq KCl 1 1000 ,000 ml @ 50 mls/hr IV .Q20H [facility]NEY Rx#:[id number] Output: Urine Catheter Amount 405 450 Other: Urine Appearance Clear Uretheral (Perez) Clear Urine Color Dark Graciela Uretheral (Perez) Dark Yellow Urine Odor Normal Stool Size Smear Stool Color Brown Stool Consistency Liquid Weight 151 lb 3.2 oz Additional comments: Constitutional; Afebrile, not in distress Respiratory system: Air Entry equal on both sides, on ant exam [employer]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 Pt has a Right IJ central line, which is being kept for the facility to use. Pt will be discharged on IV and Sublingual Morhpine. Sublingual morphine to be used if IV medication cannot be administered. Pt is also been prescribed IV and SL ativan. SL ativan to be used if IV administration is not possible. Diet as tolerated for comfort. - Follow up Plan Follow up with: Camila Lala MD [Physician] - Olga Artis MD [Primary Care Provider] - Disposition: Xfer SNF Prognosis: Undetermined Rehab Potential: Undetermined (comfort care) I certify that the patient requires SNF services: Yes Overall status at discharge: patient is not back to baseline Medical - DS: Qual - VTE Deep Vein Thrombosis/Pulmonary Embolism Present on Admission: No
[2018-12-08] MEDS ORDERED: SCOPOLAMINE 1 PATCH PATCH TOPICAL SCH (10:00)
--- NOTE | 2018-12-09 15:15 | Operative Note ---
DATE OF OPERATION: 11/29/2018 PREOPERATIVE DIAGNOSIS: PEG tube malfunction, gastrocutaneous fistula. POSTOPERATIVE DIAGNOSIS: PEG tube malfunction, gastrocutaneous fistula. PROCEDURE: 1. Esophagogastroduodenoscopy with percutaneous endoscopic gastrostomy tube placement. 2. Partial closure of gastrocutaneous fistula. DESCRIPTION OF PROCEDURE: Under general anesthesia, the patient was turned to the left lateral decubitus position. The scope was introduced through the retro pharynx into the esophagus. The scope was pushed through the esophagus into the stomach without difficulty. The PEG tube was placed in the upper fundus. In pushing the PEG tube through this area, the tube came out of the large gastrocutaneous fistula in the left upper quadrant. The stomach would not hold gas so a plug was placed in the opening in order to get good dilation of the stomach. This was held in place by one of the assistants. The stomach was then insufflated until it could be palpated through the abdominal wall. Once the area of placement of the tube was confirmed, it was anesthetized with 1% Xylocaine. A cannulated needle was then passed through the abdominal wall through the stomach and into the gastric cavity. The guidewire was then placed through the cannulated needle and was grasped with a snare port. It was then pulled through the esophagus and out the mouth. The gastrostomy tube was attached to the guidewire and was then pulled through the mouth and esophagus and into the stomach, and then with gentle pressure, it was pulled through the abdominal wall until the retaining bolster of the tube was against the abdominal wall. Pictures were taken. The attachments were placed on the tube to hold it in place. Because the gastrocutaneous fistula was so large and was through and through, it was elected to try to close the gastric mucosa with a 2-0 Vicryl. This was partially done with 3 sutures of 2-0 Vicryl. The portion of the fistula through the abdominal wall was left open because of contamination. Dressings were placed around the tube and over the gastrocutaneous fistula opening. The patient tolerated the procedure well. She was awakened, extubated and transferred to the postanesthetic care unit in stable, satisfactory condition. LCS:isauro Job ID: [id number] Doc ID: [id number] Camila Lala M.D.
== END 2018-12-06 15:10 | DRG 177 ==
LOC: MEDSUR 11:37 → ED 11:37 → MEDSUR 14:42 → ICU 11-30 16:50
PROVIDERS: ADMIT Family Medicine Adult Medicine; ATTEND Internal Medicine